=== PATIENT | female | born 1950 | race Caucasian/White ===

== ENCOUNTER 2016-08-16 09:06 | Emergency (ER) | payer MEDICARE, MEDICAID ==
[2016-08-16] MEDS ORDERED: NS 0.9% 1000 ML* 2,000 ML IV ONE (10:37)
[2016-08-16] MEDS ORDERED: Meclizine TAB* 12.5 MG PO ONE (10:37)
[2016-08-16 10:47] LABS: Hematocrit 38 % (35-47); Hemoglobin 12.6 g/dl (12.0-16.0); Mean Corpuscular HGB Conc 33 g/dl (31-36); Mean Corpuscular Hemoglobin 29 pg (27-31); Mean Corpuscular Volume 85 fL (80-97); Mean Platelet Volume 7 um3 (7.4-10.4); Red Blood Count 4.42 10^6/ul (4.0-5.4); Red Cell Distribution Width 14 % (10.5-15); White Blood Count 8.7 10^3/ul (3.5-10.8)
[2016-08-16 11:02] LABS: BUN/Creatinine Ratio 30.1 (8-20); Calcium 9.6 mg/dL (8.6-10.3); EGFR African American 102.9 (>60); Globulin 3.3 g/dL (2-4); Magnesium 2.1 mg/dL (1.9-2.7); Potassium 4.3 mmol/L (3.5-5.0); Total Bilirubin 0.9 mg/dL (0.2-1.0); Total Protein 7.3 g/dL (6.4-8.9)
[2016-08-16 11:40] LABS: TSH (Thyroid Stimulating Horm) 1.62 mcIU/mL (0.34-5.60)
--- NOTE | 2016-08-16 13:51 | ED ---
Yodit Mcdowell Matthew, scribed for Himanshu Matson MD on 08/16/16 at 1034 . Dizziness - HPI Summary HPI Summary: A 66 y/o female presents to the ED with dizziness since 07:00 this morning. The patient describes her dizziness as her head spinning. Associated symptoms include nausea, unsteady gait, decreased appetite, and bilaterally LE weakness. She denies vomiting, sore throat, tinnitus, cough, chest pain, SOB, rashes, urinary symptoms, and recent illness. Her dizziness alleviated when laying down. Her dizziness is unaffected when sitting up. The patient had a small meal this morning. She has decreased hearing in the right ear. She has a Hx of dizziness and states that her symptoms are similar to her previous episodes. PMHx includes CVA and HTN. - History Of Current Complaint Chief Complaint: EDDizziness Stated Complaint: GENERAL ILLNESS Hx Obtained From: Patient Onset/Duration: Still Present Timing: Constant Severity Initially: Moderate Severity Currently: Mild Character: Head Spinning, Dizzy Aggravating Factor(s): Nothing Alleviating Factor(s): Lying Down Associated Signs And Symptoms: Positive: Nausea, Unsteady Gait, Decreased Oral Intake, Other: - Bilateral LE weakness; headache - right sided temporal. Negative: Vomiting, Tinnitus, Chest Pain, SOB - Allergies/Home Medications Allergies/Adverse Reactions: Allergies Allergy/AdvReac Type Severity Reaction Status Date / Time Bacitracin [From Neosporin] Allergy Unknown Verified 04/19/16 05:44 Reaction Details Neomycin [From Neosporin] Allergy Unknown Verified 04/19/16 05:44 Reaction Details Penicillins Allergy Unknown Verified 04/19/16 05:44 Reaction Details Polymyxin B [From Neosporin] Allergy Unknown Verified 04/19/16 05:44 Reaction Details Sulfa Antibiotics Allergy Unknown Verified 04/19/16 05:44 Reaction Details Sulfamethoxazole Allergy Unknown Verified 04/19/16 05:44 w/Trimethoprim Reaction [From Bactrim] Details PMH/Surg Hx/FS Hx/Imm Hx Endocrine/Hematology History: Denies: Hx Diabetes Cardiovascular History: Reports: Hx Angina, Hx Hypercholesterolemia, Hx Hypertension - not on medication, Other Cardiovascular Problems/Disorders - NSVT , HYPERCHOLESTEROLEMIA Denies: Hx Congestive Heart Failure, Hx Pacemaker/ICD Respiratory History: Reports: Hx Asthma, Hx Chronic Bronchitis, Hx Chronic Obstructive Pulmonary Disease (COPD), Other Respiratory Problems/Disorders - hx bronchitis GI History: Reports: Hx Gall Bladder Disease - gallbladder surgery, gallstones, Other GI Disorders - gallbladder surgery, gallstones History: Denies: Hx Dialysis, Hx Renal Disease Musculoskeletal History: Reports: Hx Arthritis, Other Musculoskeletal History - arthritis Sensory History: Reports: Hx Vision Problem, Hx Hearing Aid - rt ear, Hx Hearing Problem Opthamlomology History: Reports: Hx Vision Problem Neurological History: Reports: Hx Headaches, Hx Seizures Psychiatric History: Reports: Hx Depression, Other Psychiatric Issues/Disorders - Borderline personality disorder Denies: Hx Panic Disorder - Cancer History Hx Chemotherapy: No Hx Radiation Therapy: No - Surgical History Surgery Procedure, Year, and Place: cholecystectomy. tubal. tonsillectomy - Immunization History Date of Tetanus Vaccine: UP TO DATE, YEAR UNKNOWB Date of Influenza Vaccine: FALL 2014 Infectious Disease History: No Infectious Disease History: Denies: Traveled Outside the [place] in Last 30 Days - Family History Known Family History: Positive: Cardiac Disease - CAD in grandfather - Social History Alcohol Use: None Substance Use Type: Reports: None Hx Tobacco Use: Yes Smoking Status (MU): Never Smoked Tobacco Type: Cigarettes Amount Used/How Often: dates are estimates Have You Smoked in the Last Year: No Review of Systems Constitutional: Other - decreased appetite Eyes: Negative ENT: Negative Negative: Sore Throat Cardiovascular: Negative Negative: Chest Pain Respiratory: Negative Negative: Shortness Of Breath, Cough Positive: Nausea. Negative: Abdominal Pain, Vomiting Genitourinary: Negative Musculoskeletal: Negative Negative: Edema - pedal Skin: Negative Negative: Rash Neurological: Other - Dizziness Positive: Headache - right sided temporal , Weakness - LE bilterally Psychological: Normal All Other Systems Reviewed And Are Negative: Yes Physical Exam - Summary Physical Exam Summary: The patient is well-nourished in no acute distress and in no acute pain. The patient's symptoms did not worsen when sitting her up./ The skin is warm and dry and skin color reflects adequate perfusion. HEENT: The head is normocephalic and atraumatic. The pupils are equal and reactive. She does not have nystagmus, PERRL, EMOI. The conjunctivae are clear and without drainage. Nares are patent and without drainage. Mouth reveals moist mucous membranes and the throat is without erythema and exudate. The external ears are intact. The ear canals are patent and without drainage. The tympanic membranes are intact. Neck is supple with full range of motion and non-tender. There are no carotid bruits. There is no neck vein distension. Respiratory: Chest is non-tender. Lungs are clear to auscultation and breath sounds are symmetrical and equal. Cardiovascular: Hear is regular rate and rhythm. There is no murmur or rub auscultated. There is no peripheral edema and pulses are symmetrical and equal. Abdomen: The abdomen is soft, obese, and non-tender. There are normal bowel sounds heard in all four quadrants and there is no organomegaly palpated. Musculoskeletal: There is no back pain noted. Extremities are non-tender with full range of motion. There is good capillary refill. There is no peripheral edema or calf tenderness elicited. Neurological: Patient is alert and oriented to person, place and time. The patient has symmetrical motor strength in all four extremities. Cranial nerves are grossly intact. Deep tendon reflexes are symmetrical and equal in all four extremities. Psychiatric: The patient has an appropriate affect and does not exhibit any anxiety or depression. Triage Information Reviewed: Yes Vital Signs On Initial Exam: Initial Vitals Temp Pulse Resp BP Pulse Ox 98.7 F 60 25 139/73 94 08/16/16 09:16 08/16/16 09:16 08/16/16 09:16 08/16/16 09:16 08/16/16 09:16 Vital Signs Reviewed: Yes - [place] Coma Scale Coma Scale Total: 15 Diagnostics - Vital Signs Vital Signs Temp Pulse Resp BP Pulse Ox 08/16/16 09:16 98.7 F 60 25 139/73 94 - Laboratory Lab Results: Lab Results 08/16/16 08/16/16 08/16/16 Range/Units 10:39 10:39 10:39 WBC 8.7 (3.5-10.8) 10^3/ul RBC 4.42 (4.0-5.4) 10^6/ul Hgb 12.6 (12.0-16.0) g/dl Hct 38 (35-47) % MCV 85 (80-97) fL MCH 29 (27-31) pg MCHC 33 (31-36) g/dl RDW 14 (10.5-15) % Plt Count 281 (150-450) 10^3/ul MPV 7 L (7.4-10.4) um3 Neut % (Auto) 75.5 (38-83) % Lymph % (Auto) 15.2 L (25-47) % Burnett % (Auto) 8.4 (1-9) % Eos % (Auto) 0.5 (0-6) % Baso % (Auto) 0.4 (0-2) % Absolute Neuts (auto) 6.6 (1.5-7.7) 10^3/ul Absolute Lymphs (auto) 1.3 (1.0-4.8) 10^3/ul Absolute Monos (auto) 0.7 (0-0.8) 10^3/ul Absolute Eos (auto) 0 (0-0.6) 10^3/ul Absolute Basos (auto) 0 (0-0.2) 10^3/ul Absolute Nucleated RBC 0 10^3/ul Nucleated RBC % 0 Sodium 135 (133-145) mmol/L Potassium 4.3 (3.5-5.0) mmol/L Chloride 101 (101-111) mmol/L Carbon Dioxide 28 (22-32) mmol/L Anion Gap 6 (2-11) mmol/L BUN 22 (6-24) mg/dL Creatinine 0.73 (0.51-0.95) mg/dL Est GFR ( Amer) 102.9 (>60) Est GFR (Non-Af Amer) 80.0 (>60) BUN/Creatinine Ratio 30.1 H (8-20) Glucose 105 H (70-100) mg/dL Lactic Acid 1.2 (0.5-2.0) mmol/L Calcium 9.6 (8.6-10.3) mg/dL Magnesium 2.1 (1.9-2.7) mg/dL Total Bilirubin 0.90 (0.2-1.0) mg/dL AST 16 (13-39) U/L ALT 13 (7-52) U/L Alkaline Phosphatase 52 (34-104) U/L Troponin I 0.00 (<0.04) ng/mL Total Protein 7.3 (6.4-8.9) g/dL Albumin 4.0 (3.2-5.2) g/dL Globulin 3.3 (2-4) g/dL Albumin/Globulin Ratio 1.2 (1-3) TSH 1.62 (0.34-5.60) mcIU/mL Result Diagrams: 08/16/16 10:39 08/16/16 10:39 Lab Statement: Any lab studies that have been ordered have been reviewed, and results considered in the medical decision making process. - EKG 10:41 Cardiac Rate: Bradycardia - 56 bpm EKG Rhythm: Sinus Bradycardia ST Segment: Non-Specific - Inferior EKG Interpretation: Poor R Wave Progression; Left [place] EKG Comparison: No Significant Change - 04/19/16 Re-Evaluation - Re-Evaluation First Eval Re-Evaluation Time: 12:42 Change: Improved Comment: The patient's symptoms have improved and she states that she's doing better. Reviewed the lab results with the patient. She agrees to the treatment plan. Dizzy Course/Dx - Course Assessment/Plan: A 66 y/o female presents to the ED with dizziness since 07:00 this morning. Lab results were reviewed. EKG shows sinus bradycardia at 56 bpm with non-specific ST changes inferiorly, Poor R Wave Progression, and Left [place]. Upon re-evaluation, the patient's symptoms have improved. The patient will be discharged home and follow-up with her PCP. - Diagnoses Differential Diagnosis/HQI/PQRI: Hypovolemia, Labyrinthitis, Metabolic Abnormality Provider Diagnoses: Vertigo, Dehydration Discharge - Discharge Plan Condition: Stable Disposition: HOME Prescriptions: Meclizine TAB* [Antivert 12.5 TAB*] 25 mg PO QID #30 tab Patient Education Materials: Vertigo (ED), Dehydration (ED), Meclizine (By mouth) Referrals: Adrián Arambula MD [Primary Care Provider] - 3 Days Additional Instructions: Please follow-up with your primary care physician. The documentation as recorded by the Yodit ireland Matthew accurately reflects the service I personally performed and the decisions made by me, Himanshu Matson MD.
[2016-08-16 13:52] VITALS: BP 112/85
== END 2016-08-16 13:43 | disposition home or self-care (01) ==
LOC: ED 09:06
DX: R42 Dizziness and giddiness (principal); E86.0 Dehydration
CPT/HCPCS: 36415; 80053; 83605; 83735; 84443; 84484; 85025; 93005; 99282; A9270-GY

== ENCOUNTER 2017-02-24 17:03 | Emergency (ER) | payer MEDICARE, MEDICAID ==
[2017-02-24] MEDS ORDERED: Meclizine TAB* 12.5 MG PO ONE (19:36)
--- NOTE | 2017-02-24 19:56 | RAD ---
HISTORY: Dizziness COMPARISONS: April 19, 2016 VIEWS:1: Single frontal portable view of the chest at 7:43 PM FINDINGS: LINES AND TUBES: None. CARDIOMEDIASTINAL SILHOUETTE: The cardiomediastinal silhouette is normal for portable technique. PLEURA: The costophrenic angles are sharp. No pleural abnormalities are noted. LUNG PARENCHYMA: The lungs are clear. ABDOMEN: The upper abdomen is clear. There is no subphrenic gas. BONES AND SOFT TISSUES: No bone or soft tissue abnormalities are noted. IMPRESSION: NO ACTIVE CARDIOPULMONARY DISEASE.
--- NOTE | 2017-02-24 20:01 | RAD ---
HISTORY: Dizziness COMPARISONS: March 06, 2016 TECHNIQUE: Multiple contiguous axial CT scans were obtained of the head without intravenous contrast. FINDINGS: HEMORRHAGE/INFARCT: There is no hemorrhage or acute infarct. MASSES/SHIFT: There is no mass or shift. EXTRA-AXIAL SPACES: There are no extra-axial fluid collections. SULCI AND VENTRICLES: The sulci and ventricles are normal in size and position for the patient's stated age. CEREBRUM: There are no focal parenchymal abnormalities. BRAINSTEM: There are no focal parenchymal abnormalities. CEREBELLUM: There are no focal parenchymal abnormalities. VESSELS: The vessels are grossly normal. PARANASAL SINUSES: The paranasal sinuses are clear. ORBITS: The orbits are unremarkable. BONES AND SOFT TISSUE: No bone or soft tissue abnormalities are noted. OTHER: None IMPRESSION: NO ACUTE INTRACRANIAL PATHOLOGY.
[2017-02-24 20:21] LABS: Hematocrit 36 % (35-47); Hemoglobin 11.8 g/dl (12.0-16.0); Mean Corpuscular HGB Conc 32 g/dl (31-36); Mean Corpuscular Hemoglobin 28 pg (27-31); Mean Corpuscular Volume 86 fL (80-97); Mean Platelet Volume 8 um3 (7.4-10.4); Red Blood Count 4.22 10^6/ul (4.0-5.4); Red Cell Distribution Width 14 % (10.5-15); White Blood Count 10.4 10^3/ul (3.5-10.8)
[2017-02-24 20:36] LABS: ALT 19 U/L (7-52); Alkaline Phosphatase 45 U/L (34-104); BUN/Creatinine Ratio 23.4 (8-20); Blood Urea Nitrogen 18 mg/dL (6-24); CO2 Carbon Dioxide 27 mmol/L (22-32); Calcium 9.2 mg/dL (8.6-10.3); Chloride 103 mmol/L (101-111); EGFR African American 96.5 (>60); Globulin 3.1 g/dL (2-4); Glucose 124 mg/dL (70-100); Sodium 134 mmol/L (133-145); Total Protein 7.1 g/dL (6.4-8.9)
[2017-02-24 20:38] LABS: Urine Bacteria Absent (Absent); Urine Bilirubin Negative (Negative); Urine Glucose Negative (Negative); Urine Nitrite Negative (Negative)
[2017-02-24 20:43] LABS: Anion Gap 4 mmol/L (2-11)
[2017-02-24 21:46] VITALS: BP 166/79
--- NOTE | 2017-02-24 21:51 | ED ---
Vickie Mcdowell Rebecca, scribed for Elaine Callahanuel on 02/24/17 at 1935 . Dizziness - HPI Summary HPI Summary: Pt is a 67 y/o F BIBA who presents to ED c/o dizziness. Sx began at 1630 and lasted between 45 minutes and 1 hour. Upon evaluation, sx are resolved. Sx aggravated by turning her head, alleviated by spontaneous resolution. Additionally c/o mild CP and R ear pain. Denies SOB and abd pain. Reports recent illness for the past week. - History Of Current Complaint Chief Complaint: EDDizziness Stated Complaint: VERTIGO Time Seen by Provider: 02/24/17 19:23 Hx Obtained From: Patient Onset/Duration: Resolved Timing: Intermittent Episode Lasting - 45 minutes to1 hour Aggravating Factor(s): Change In Head Position Alleviating Factor(s): Other - Spontaneous resolution Associated Signs And Symptoms: Positive: Chest Pain - mild. Negative: SOB - Allergies/Home Medications Allergies/Adverse Reactions: Allergies Allergy/AdvReac Type Severity Reaction Status Date / Time Bacitracin [From Neosporin] Allergy Unknown Verified 02/24/17 17:31 Reaction Details Neomycin [From Neosporin] Allergy Unknown Verified 02/24/17 17:31 Reaction Details Penicillins Allergy Unknown Verified 02/24/17 17:31 Reaction Details Polymyxin B [From Neosporin] Allergy Unknown Verified 02/24/17 17:31 Reaction Details Sulfa Antibiotics Allergy Unknown Verified 02/24/17 17:31 Reaction Details Sulfamethoxazole Allergy Unknown Verified 02/24/17 17:31 w/Trimethoprim Reaction [From Bactrim] Details PMH/Surg Hx/FS Hx/Imm Hx Endocrine/Hematology History: Denies: Hx Diabetes Cardiovascular History: Reports: Hx Angina, Hx Hypercholesterolemia, Hx Hypertension - not on medication, Other Cardiovascular Problems/Disorders - NSVT , HYPERCHOLESTEROLEMIA Denies: Hx Congestive Heart Failure, Hx Pacemaker/ICD Respiratory History: Reports: Hx Asthma, Hx Chronic Bronchitis, Hx Chronic Obstructive Pulmonary Disease (COPD), Other Respiratory Problems/Disorders - hx bronchitis GI History: Reports: Hx Gall Bladder Disease - gallbladder surgery, gallstones, Other GI Disorders - gallbladder surgery, gallstones History: Denies: Hx Dialysis, Hx Renal Disease Musculoskeletal History: Reports: Hx Arthritis, Other Musculoskeletal History - arthritis Sensory History: Reports: Hx Vision Problem, Hx Hearing Aid - rt ear, Hx Hearing Problem Opthamlomology History: Reports: Hx Vision Problem Neurological History: Reports: Hx Headaches, Hx Seizures Psychiatric History: Reports: Hx Depression, Other Psychiatric Issues/Disorders - Borderline personality disorder Denies: Hx Panic Disorder - Cancer History Hx Chemotherapy: No Hx Radiation Therapy: No - Surgical History Surgery Procedure, Year, and Place: cholecystectomy. tubal. tonsillectomy - Immunization History Date of Tetanus Vaccine: UP TO DATE, YEAR UNKNOWB Date of Influenza Vaccine: FALL 2014 Infectious Disease History: No Infectious Disease History: Denies: Traveled Outside the [place] in Last 30 Days - Family History Known Family History: Positive: Cardiac Disease - CAD in grandfather - Social History Alcohol Use: None Substance Use Type: Reports: None Hx Tobacco Use: Yes Smoking Status (MU): Never Smoked Tobacco Type: Cigarettes Amount Used/How Often: dates are estimates Have You Smoked in the Last Year: No Review of Systems Positive: Ear Ache - R ear pain Positive: Chest Pain - mild Negative: Shortness Of Breath Negative: Abdominal Pain Neurological: Other - Dizziness All Other Systems Reviewed And Are Negative: Yes Physical Exam - Summary Physical Exam Summary: Appearance: Well appearing, no pain distress Skin: warm, dry, reflects adequate perfusion Head/face: normal Eyes: EOMI, WENDI ENT: normal Neck: supple, nontender Respiratory: CTA, breath sounds present Cardiovascular: RRR, pulses symmetrical Abdomen: nontender, soft Bowel: present Musculoskeletal: normal, strength/ROM intact Neuro: normal, sensory motor intact, A&Ox3 Triage Information Reviewed: Yes Vital Signs On Initial Exam: Initial Vitals Temp Pulse BP 98.2 F 82 179/87 02/24/17 17:17 02/24/17 17:17 02/24/17 17:17 Vital Signs Reviewed: Yes - [place] Coma Scale Best Eye Response: 4 - Spontaneous Best Motor Response: 6 - Obeys Commands Best Verbal Response: 5 - Oriented Coma Scale Total: 15 Diagnostics - Vital Signs Vital Signs Temp Pulse Resp BP Pulse Ox 02/24/17 18:30 67 17 170/70 94 02/24/17 18:00 69 19 167/77 94 02/24/17 17:30 81 174/102 95 02/24/17 17:22 98.2 F 82 18 175/87 95 02/24/17 17:19 79 94 08/27/17 17:17 98.2 F 82 179/87 - Laboratory Result Diagrams: 02/24/17 20:10 02/24/17 21:03 Lab Statement: Any lab studies that have been ordered have been reviewed, and results considered in the medical decision making process. - Radiology CXR Xray Interpretation: No Acute Changes - NO ACTIVE CARDIOPULMONARY DISEASE. ED physician reviewed this radiology report and agrees. Radiology Interpretation Completed By: Radiologist - CT Brain CT CT Interpretation: No Acute Changes - NO ACUTE INTRACRANIAL PATHOLOGY. ED physician reviewed this radiology report and agrees. CT Interpretation Completed By: Radiologist - EKG 2051 Cardiac Rate: NL - 68 bpm EKG Rhythm: Sinus Rhythm EKG Interpretation: No acute changes Re-Evaluation - Re-Evaluation First Eval Re-Evaluation Time: 21:38 Change: Improved Comment: Pt sx have improved after antivert. Dizzy Course/Dx - Course Assessment/Plan: Pt is a 67 y/o F BIBA who presents to ED c/o dizziness. Sx began at 1630 and lasted between 45 minutes and 1 hour. Upon evaluation, sx are resolved. Sx aggravated by turning her head, alleviated by spontaneous resolution. Additionally c/o mild CP and R ear pain. Denies SOB and abd pain. Reports recent illness for the past week. EKG reveals sinus rhythm with no acute changes. CXR and Brain CT reveal no acute findings. Troponin of 0.00. In the ED course, the pt was administered Meclizine which improved sx. She will be D/C to home with Dx of vertigo, an Rx for Meclizine and a follow up with her PCP. She understands and agrees. Elevated BP noted and advised to f/u with PCP. - Diagnoses Provider Diagnoses: Vertigo Discharge - Discharge Plan Condition: Stable Disposition: HOME Prescriptions: Meclizine HCl [Meclizine 25] 25 mg PO TID #20 tab Patient Education Materials: Vertigo (ED) Referrals: Adrián Arambula MD [Primary Care Provider] - 3 Days The documentation as recorded by the Vickie ireland Rebecca accurately reflects the service I personally performed and the decisions made by , Dany Callahan.
== END 2017-02-24 21:55 | disposition home or self-care (01) ==
LOC: ED 17:03
DX: R42 Dizziness and giddiness (principal); H92.01 Otalgia, right ear; R07.9 Chest pain, unspecified
CPT/HCPCS: 36415; 70450; 71010; 80053; 81003; 81015; 84484; 85025; 85610; 85730; 87077; 87086; 93005; 99284; A9270-GY

== ENCOUNTER 2017-10-21 17:51 | Emergency (ER) | payer MEDICARE, MEDICAID ==
[2017-10-21] MEDS ORDERED: Albuterol/Ipratropium NEB.SOL* Albuterol 2.5 MG/Ipratropium 0.5 MG 3 ML INH ONE (18:37)
--- NOTE | 2017-10-21 18:46 | ED ---
Respiratory - HPI Summary HPI Summary: 67-year-old female presents with shortness for the past couple hours. She states she has been having chest congestion. She admits to occasionally chest tightness. she denies any current chest pain. She denies a sore throat. She admits to sinus congestion. She denies abdominal pain nausea or vomiting. She has history of COPD. She has not been using her inhaler much. She denies any increase pain or swelling in her calf muscles. She denies any history of [place] or PE. She denies any recent travel or hormone therapy. She denies any palpations. - History of Current Complaint Chief Complaint: EDShortnessOfBreath Stated Complaint: DIFF. BREATHING Time Seen by Provider: 10/21/17 18:13 Pain Intensity: 0 - Allergy/Home Medications Allergies/Adverse Reactions: Allergies Allergy/AdvReac Type Severity Reaction Status Date / Time bacitracin Allergy Unknown Verified 08/15/17 11:20 [From Neosporin Reaction ([id number])] Details clindamycin Allergy Unknown Verified 08/15/17 11:20 Reaction Details Iodinated Contrast- Oral and Allergy Unknown Verified 08/15/17 11:20 IV Dye Reaction Details neomycin Allergy Unknown Verified 08/15/17 11:20 [From Neosporin Reaction ([id number])] Details Penicillins Allergy Unknown Verified 08/15/17 11:20 Reaction Details polymyxin B Allergy Unknown Verified 08/15/17 11:20 [From Neosporin Reaction ([id number])] Details Sulfa (Sulfonamide Allergy Unknown Verified 08/15/17 11:20 Antibiotics) Reaction Details PMH/Surg Hx/FS Hx/Imm Hx Endocrine/Hematology History: Denies: Hx Diabetes Cardiovascular History: Reports: Hx Angina, Hx Hypercholesterolemia, Hx Hypertension - not on medication, Other Cardiovascular Problems/Disorders - NSVT , HYPERCHOLESTEROLEMIA Denies: Hx Congestive Heart Failure, Hx Pacemaker/ICD Respiratory History: Reports: Hx Asthma, Hx Chronic Bronchitis, Hx Chronic Obstructive Pulmonary Disease (COPD), Other Respiratory Problems/Disorders - hx bronchitis GI History: Reports: Hx Gall Bladder Disease - gallbladder surgery, gallstones, Other GI Disorders - gallbladder surgery, gallstones History: Denies: Hx Dialysis, Hx Renal Disease Musculoskeletal History: Reports: Hx Arthritis, Other Musculoskeletal History - arthritis Sensory History: Reports: Hx Vision Problem, Hx Hearing Aid - rt ear, Hx Hearing Problem Opthamlomology History: Reports: Hx Vision Problem Neurological History: Reports: Hx Headaches, Hx Seizures Psychiatric History: Reports: Hx Depression, Other Psychiatric Issues/Disorders - Borderline personality disorder Denies: Hx Panic Disorder - Cancer History Hx Chemotherapy: No Hx Radiation Therapy: No - Surgical History Surgery Procedure, Year, and Place: cholecystectomy. tubal. tonsillectomy - Immunization History Date of Tetanus Vaccine: UP TO DATE, YEAR UNKNOWB Date of Influenza Vaccine: FALL 2014 Infectious Disease History: No Infectious Disease History: Denies: Traveled Outside the [place] in Last 30 Days - Family History Known Family History: Positive: Cardiac Disease - CAD in grandfather - Social History Alcohol Use: None Substance Use Type: Reports: None Hx Tobacco Use: Yes Smoking Status (MU): Former Smoker Type: Cigarettes Amount Used/How Often: dates are estimates Have You Smoked in the Last Year: No Review of Systems Negative: Fever Positive: Chest Pain Positive: Shortness Of Breath, Cough Negative: Abdominal Pain All Other Systems Reviewed And Are Negative: Yes Physical Exam Triage Information Reviewed: Yes Vital Signs On Initial Exam: Initial Vitals Temp Pulse Resp BP Pulse Ox 99.4 F 70 16 167/84 95 10/21/17 18:07 10/21/17 18:07 10/21/17 18:07 10/21/17 18:07 10/21/17 18:07 Vital Signs Reviewed: Yes Appearance: Positive: Well-Appearing Skin: Positive: Warm, Dry Head/Face: Positive: Normal Head/Face Inspection Eyes: Positive: Normal, EOMI, WENDI, Conjunctiva Clear ENT: Positive: Normal ENT inspection, Pharynx normal, TMs normal. Negative: Sinus tenderness Neck: Positive: Supple, Nontender, No Lymphadenopathy Respiratory/Lung Sounds: Positive: Clear to Auscultation, Decreased Breath Sounds Cardiovascular: Positive: Normal, RRR Abdomen Description: Positive: Nontender, Soft Bowel Sounds: Positive: Present Musculoskeletal: Positive: Normal Neurological: Positive: Normal Psychiatric: Positive: Normal Diagnostics - Vital Signs Vital Signs Temp Pulse Resp BP Pulse Ox 10/21/17 18:39 63 156/91 96 10/21/17 18:10 67 95 10/21/17 18:07 99.4 F 70 16 167/84 95 - Laboratory Lab Results: Lab Results 10/21/17 Range/Units 18:19 POC Glucose (mg/dL) 105 H (70-100) mg/dL Result Diagrams: 10/21/17 19:29 10/21/17 19:29 Lab Statement: Any lab studies that have been ordered have been reviewed, and results considered in the medical decision making process. - Radiology chest Xray Interpretation: Positive (See Comments) - IMPRESSION: No active cardiopulmonary disease is noted. Overall no changes noted since February 24, 2017. Radiology Interpretation Completed By: Radiologist - EKG No standard instances Cardiac Rate: NL EKG Rhythm: Sinus Rhythm EKG Interpretation: sinus rhythmn, improved from previous Re-Evaluation - Re-Evaluation First Eval Re-Evaluation Time: 20:00 Change: Improved Comment: feeling better after duoneb. Disposition - Course Course Of Treatment: 67-year-old female presents with shortness for the past couple hours. She states she has been having chest congestion. She admits to occasionally chest tightness. she denies any current chest pain. She denies a sore throat. She admits to sinus congestion. She denies abdominal pain nausea or vomiting. She has history of COPD. She has not been using her inhaler much. She denies any increase pain or swelling in her calf muscles. She denies any history of [place] or PE. She denies any recent travel or hormone therapy. She denies any palpations. on exam lungs decrease breath sounds present. chest wall tenderness right side of chest. EKG normal. chest xray normal. labs wnl. will treat as copd excerbation with inhaler and steriod. patient understand and agrees with plan. - Differential Dx - Cardiopulmonary Differential Diagnoses - Cardiopulmonary: Bronchitis, Exacerbation Of COPD, Lower Resp Infection - Diagnoses Provider Diagnoses: SOB (shortness of breath), COPD exacerbation Discharge - Sign-Out/Discharge Documenting (check all that apply): Discharge/Admit/Transfer - Discharge Plan Condition: Good Disposition: HOME Prescriptions: Meclizine TAB* [Antivert 12.5 TAB*] 25 mg PO TID #12 tab predniSONE TAB* [Deltasone TAB*] 50 mg PO DAILY #4 tab Patient Education Materials: COPD (Chronic Obstructive Pulmonary Disease) (ED) Referrals: Adrián Arambula MD [Primary Care Provider] - Additional Instructions: Use inhaler up to two puffs every 4 hours for cough and wheezing Take steroid once a day for 4 more days starting tomorrow Take Tylenol for pain every 6 hours Follow up with primary within 5 days Return to ED if develop any new or worsening symptoms - Billing Disposition and Condition Condition: GOOD Disposition: HOME
--- NOTE | 2017-10-21 19:21 | RAD ---
Indication: Shortness of breath. 2 views of the chest including dual energy PA views demonstrates no mediastinal shift. Heart is of normal size and configuration. Lung ervin are clear. IMPRESSION: No active cardiopulmonary disease is noted. Overall no changes noted since February 24, 2017.
[2017-10-21 19:39] LABS: ABS Basophils 0.1 10^3/ul (0-0.2); ABS Eosinophils 0.1 10^3/ul (0-0.6); ABS Lymphocytes 2.1 10^3/ul (1.0-4.8); ABS Monocytes 0.8 10^3/ul (0-0.8); ABS Neutrophils 6.9 10^3/ul (1.5-7.7); ABS Nucleated RBC 0 10^3/ul; Eosinophil % 0.9 % (0-6); Hematocrit 38 % (35-47); Hemoglobin 12.7 g/dl (12.0-16.0); Lymphocyte % 20.6 % (25-47); Mean Corpuscular HGB Conc 34 g/dl (31-36); Mean Corpuscular Hemoglobin 29 pg (27-31); Mean Corpuscular Volume 86 fL (80-97); Mean Platelet Volume 7.3 um3 (7.4-10.4); Nucleated Red Blood Cells % 0.1; Platelet Count 341 10^3/ul (150-450); Red Cell Distribution Width 15 % (10.5-15); White Blood Count 9.9 10^3/ul (3.5-10.8)
[2017-10-21 19:59] LABS: EGFR Non-African American 61.9 (>60)
[2017-10-21] MEDS ORDERED: predniSONE TAB* 20 MG PO ONE (20:23)
[2017-10-21] MEDS ORDERED: A lbuterol Hfa (PREPAK) 1 MDI - ED TAKE HOME DISPENSING ONLY INHH ONE (20:30)
[2017-10-21 21:28] VITALS: BP 139/89
== END 2017-10-21 21:27 | disposition home or self-care (01) ==
LOC: ED 17:51
DX: R06.02 Shortness of breath (principal); J44.1 Chronic obstructive pulmonary disease with (acute) exacerbation; I20.9 Angina pectoris, unspecified; I10 Essential (primary) hypertension; E78.00 Pure hypercholesterolemia, unspecified; F32.9 Major depressive disorder, single episode, unspecified; F60.3 Borderline personality disorder; Z88.0 Allergy status to penicillin; Z88.2 Allergy status to sulfonamides; Z88.1 Allergy status to other antibiotic agents; Z88.3 Allergy status to other anti-infective agents; Z91.041 Radiographic dye allergy status; Z87.891 Personal history of nicotine dependence
CPT/HCPCS: 36415; 71046; 80053; 83605; 83880; 84484; 85025; 86141; 93005; 99283; A9270-GY; J7512

== ENCOUNTER 2018-09-12 12:11 | Emergency (ER) | payer MEDICARE, MEDICAID ==
[2018-09-12 12:31] VITALS: BP 147/50
--- NOTE | 2018-09-12 12:37 | ED ---
Psychiatric Complaint - HPI Summary HPI Summary: The patient is a 68 y/o F presenting to [facility] with a chief complaint of SI yesterday that has since resolved, but she is continuing to feel depressed and anxious since she has been crying this morning. She states that she was on the phone with her sister yesterday when she became upset. She then notes that she "lost her mind" and had a knife in her hand but didn't act upon the SI. She has hx of SI with thoughts of jumping off of bridges, but she hasn't made attempts before. She lives by herself. She additionally c/o of CP. No SI at this time. - History Of Current Complaint Chief Complaint: EDMentalHealth Hx Obtained From: Patient Onset/Duration: Sudden Onset, Lasting Hours, Resolved Timing: Hours Severity Initially: Severe Severity Currently: Moderate Character: Depressed, Anxious Aggravating Factor(s): Other - argument with sister Alleviating Factor(s): Nothing Has Suicidal: Reports: Thoughts, With A Plan - cutting self with knife, jumping off bridge. Denies: Has Prior Attempt(s) - Allergies/Home Medications Allergies/Adverse Reactions: Allergies Allergy/AdvReac Type Severity Reaction Status Date / Time bacitracin Allergy Unknown Verified 09/12/18 12:26 [From Neosporin Reaction ([id number])] Details clindamycin Allergy Unknown Verified 09/12/18 12:26 Reaction Details Iodinated Contrast- Oral and Allergy Unknown Verified 09/12/18 12:26 IV Dye Reaction Details neomycin Allergy Unknown Verified 09/12/18 12:26 [From Neosporin Reaction ([id number])] Details Penicillins Allergy Unknown Verified 09/12/18 12:26 Reaction Details polymyxin B Allergy Unknown Verified 09/12/18 12:26 [From Neosporin Reaction ([id number])] Details Sulfa (Sulfonamide Allergy Unknown Verified 09/12/18 12:26 Antibiotics) Reaction Details Home Medications: Home Medications Acetaminophen TAB* [Tylenol TAB*] 325 - 650 mg PO Q6H PRN 09/12/18 [History Confirmed 09/12/18] Albuterol inh POWDER (NF) [Proair Respiclick] 1 - 2 puff INH QID PRN 09/12/18 [ History Confirmed 09/12/18] Baclofen TAB* [Lioresal TAB*] 10 mg PO TID PRN 09/12/18 [History Confirmed 09/12] Bismuth Subsalicylate [Pepto-Bismol Max Strength] 30 ml PO DAILY PRN 09/12/18 [ History Confirmed 09/12/18] Calcium Carbonate/Vitamin D3 [Calcium 500 + Vit D Caplet] 1 tab PO BID 09/12/18 [History Confirmed 09/12/18] Clotrimazole 1% CREAM* [Clotrimazole 1%*] 1 applic TOPICAL BID PRN 09/12/18 [ History Confirmed 09/12/18] Dextran 70/Hypromellose [Natural Balance Tears 70.01-0.3 %] 1 drop OPHTHALMIC BID 09/12/18 [History Confirmed 09/12/18] Diclofenac Sodium EC TAB* [Voltaren EC TAB*] 25 - 50 mg PO TID PRN 09/12/18 [ History Confirmed 09/12/18] Diphenhydra/Phenyleph/Acetamin [Delsym Cough-Cold Nighttime Lq] 10 ml PO Q6HR PRN 09/12/18 [History Confirmed 09/12/18] Eucalyptus/Menthol [Cornejo Cough Drops] 1 greg PO Q2HR PRN 09/12/18 [History Confirmed 09/12/18] Gabapentin CAP(*) [Neurontin 300 CAP(*)] 300 mg PO BID PRN 09/12/18 [History Confirmed 09/12/18] Glucosamine CAP (NF) 3 cap PO DAILY 09/12/18 [History Confirmed 09/12/18] LoraTADine TAB(NF) [Claritin 10 MG TAB(NF)] 10 mg PO DAILY PRN 09/12/18 [ History Confirmed 09/12/18] Lovastatin (NF) [Mevacor (NF)] 40 mg PO DAILY 09/12/18 [History Confirmed ] Magnesium CITRATE* [Citrate of Magnesia*] 4 oz PO ONCE PRN 09/12/18 [History Confirmed 09/12/18] Meclizine TAB* [Antivert 12.5 TAB*] 25 mg PO TID PRN 09/12/18 [History Confirmed 09/12/18] Metoprolol Succinate XL TAB* [Toprol XL TAB*] 12.5 mg PO DAILY 09/12/18 [ History Confirmed 09/12/18] Multivitamins/Minerals TAB* [Theragran/minerals TAB*] 1 tab PO DAILY 09/12/18 [ History Confirmed 09/12/18] Naproxen TAB* [Naprosyn 250 mg TAB*] 500 mg PO BID WITH MEALS PRN 09/12/18 [ History Confirmed 09/12/18] Olopatadine 0.1% OPHTH (NF) [Patanol 0.1% OPHTH (NF)] 1 drop BOTH EYES BID PRN 09/12/18 [History Confirmed 09/12/18] Polyethylene Glycol 3350* [Miralax*] 17 gm PO DAILY PRN 09/12/18 [History Confirmed 09/12/18] guaiFENesin LIQ* [Robitussin*] 15 ml PO Q6HR PRN 09/12/18 [History Confirmed ] PMH/Surg Hx/FS Hx/Imm Hx Endocrine/Hematology History: Denies: Hx Diabetes Cardiovascular History: Reports: Hx Angina, Hx Hypercholesterolemia, Hx Hypertension - not on medication, Other Cardiovascular Problems/Disorders - NSVT , HYPERCHOLESTEROLEMIA Denies: Hx Congestive Heart Failure, Hx Pacemaker/ICD Respiratory History: Reports: Hx Asthma, Hx Chronic Bronchitis, Hx Chronic Obstructive Pulmonary Disease (COPD), Other Respiratory Problems/Disorders - hx bronchitis GI History: Reports: Hx Gall Bladder Disease - gallbladder surgery, gallstones, Other GI Disorders - gallbladder surgery, gallstones History: Denies: Hx Dialysis, Hx Renal Disease Musculoskeletal History: Reports: Hx Arthritis, Other Musculoskeletal History - arthritis Sensory History: Reports: Hx Vision Problem, Hx Hearing Aid - rt ear, Hx Hearing Problem Opthamlomology History: Reports: Hx Vision Problem Neurological History: Reports: Hx Headaches, Hx Seizures Psychiatric History: Reports: Hx Depression, Other Psychiatric Issues/Disorders - Borderline personality disorder Denies: Hx Panic Disorder - Cancer History Hx Chemotherapy: No Hx Radiation Therapy: No - Surgical History Surgery Procedure, Year, and Place: cholecystectomy. tubal. tonsillectomy - Immunization History Date of Tetanus Vaccine: UP TO DATE, YEAR UNKNOWB Date of Influenza Vaccine: FALL 2014 - Family History Known Family History: Positive: Cardiac Disease - CAD in grandfather - Social History Alcohol Use: None Substance Use Type: Reports: None Hx Tobacco Use: Yes Smoking Status (MU): Former Smoker Type: Cigarettes Amount Used/How Often: dates are estimates Have You Smoked in the Last Year: No Review of Systems Positive: Chest Pain Positive: Anxious, Depressed, Other - SI yesterday that has resolved All Other Systems Reviewed And Are Negative: Yes Physical Exam - Summary Physical Exam Summary: VITAL SIGNS: Reviewed. GENERAL: Patient is a well-developed and nourished elderly female who is lying comfortable in the stretcher. Patient is not in any acute respiratory distress. HEAD AND FACE: No signs of trauma. No ecchymosis, hematomas or skull depressions. No sinus tenderness. EYES: PERRLA, EOMI x 2, No injected conjunctiva, no nystagmus. EARS: Hearing grossly intact. Ear canals and tympanic membranes are within normal limits. MOUTH: Oropharynx within normal limits. NECK: Supple, trachea is midline, no adenopathy, no JVD, no carotid bruit, no c- spine tenderness, neck with full ROM. CHEST: Symmetric, no tenderness at palpation LUNGS: Clear to auscultation bilaterally. No wheezing or crackles. CVS: Regular rate and rhythm, S1 and S2 present, no murmurs or gallops appreciated. ABDOMEN: Soft, non-tender. No signs of distention. No rebound no guarding, and no masses palpated. Bowel sounds are normal. EXTREMITIES: FROM in all major joints, no edema, no cyanosis or clubbing. NEURO: Alert and oriented x 3. No acute neurological deficits. Speech is normal and follows commands. SKIN: Dry and warm PSYCH: Depressed, quiet, and denies any suicidal thoughts or plan right now. No homicidal thoughts or plan. No signs of psychosis or pressure speech. No tangential speech. Triage Information Reviewed: Yes Vital Signs Reviewed: Yes Diagnostics - Laboratory Result Diagrams: 09/12/18 12:51 09/12/18 12:51 Lab Statement: Any lab studies that have been ordered have been reviewed, and results considered in the medical decision making process. - Radiology CXR Radiology Interpretation Completed By: Radiologist Summary of Radiographic Findings: No active cardiopulmonary disease. ED physician has reviewed this report. - EKG 12:38 Cardiac Rate: NL - 65 BPM EKG Rhythm: Sinus Rhythm EKG Comparison: No Significant Change - Similar to 10/21/2017. Summary of EKG Findings: No ST elevations. T wave inversions in leads III and aVF. Course/Dx - Course Assessment/Plan: Blood work w/o a significant abnormality. She is medically cleared. She is awaiting for a MHE. Patient is hemodynamically stable and A+O x 3. Dr. Cash (Psychiatry) assess patient and clear the patient and recommends to discharge the patient home with outpatient follow up. - Differential Dx/Clinical Impression Differential Diagnosis/HQI/PQRI: Positive: Anxiety, Depression, Suicidal Ideation Provider Diagnosis: Adjustment disorder with anxiety - Physician Notifications Discussed Care Of Patient With: Jeana Younger - mental health account executive sales representative Time Discussed With Above Provider: 15:30 Instructed by Provider To: Other - I spoke with Jeana, who reports that the patient can be discharged from Dr. Cash, psychiatry. Discharge - Sign-Out/Discharge Documenting (check all that apply): Patient Departure - Patient will be discharged home. Patient Received Moderate/Deep Sedation with Procedure: No - Discharge Plan Condition: Stable Disposition: HOME Referrals: Berta Castro PA [Primary Care Provider] - Additional Instructions: RETURN TO THE ED FOR ANY WORSENING OR NEW SYMPTOMS. - Billing Disposition and Condition Condition: STABLE Disposition: Home - Attestation Statements Document Initiated by Betito: Yes Documenting Scribe: Ade Ceballos Provider For Whom Betito is Documenting (Include Credential): Dr. Rivera Crockett MD Scribe Attestation: Ade Mcdowell scribed for Dr. Rivera Crockett MD on 09/12/18 at 1546. Scribe Documentation Reviewed: Yes Provider Attestation: The documentation as recorded by the Ade [place] accurately reflects the service I personally performed and the decisions made by me, Dr. Rivera Crockett MD Status of Scribe Document: Ready
[2018-09-12 13:11] LABS: ABS Basophils 0.1 10^3/ul (0-0.2); ABS Eosinophils 0.1 10^3/ul (0-0.6); ABS Lymphocytes 1.9 10^3/ul (1.0-4.8); ABS Monocytes 0.8 10^3/ul (0-0.8); ABS Neutrophils 6.8 10^3/ul (1.5-7.7); ABS Nucleated RBC 0 10^3/ul; Eosinophil % 0.5 %; Hematocrit 38 % (33-41); Hemoglobin 12.5 g/dL (12.0-16.0); Lymphocyte % 19.7 %; Mean Corpuscular HGB Conc 33 g/dL (31-36); Mean Corpuscular Hemoglobin 30 pg (27-31); Mean Corpuscular Volume 89 fL (80-97); Mean Platelet Volume 7.2 fL (7.4-10.4); Nucleated Red Blood Cells % 0; Platelet Count 377 10^3/uL (150-450); Red Blood Count 4.23 10^6 /uL (3.70-4.87); Red Cell Distribution Width 14 % (10.5-15); White Blood Count 9.6 10^3/uL (3.5-10.8)
--- OUTSIDE RECORDS SUMMARY | 2018-09-12 13:21 | XMS REPORT | Continuity of Care Document ---
:1950 External Reference #:[id number] Author Name Sabine Terrazas Care Team Providers Name Role Phone Adrián Arambula MD Primary Care Physician Unavailable Payers Date Identification Numbers Payment Provider Subscriber Policy Number: [id number] Medicare Angela Simon PayID: [id number] [address] [place] [address] Policy Number: [id number] Medicaid Angela Simon PayID: [id number] [address] [place] [address] Advance Directives Description No Information Available Problems Date Description Provider Status Onset: 05/26/2014 Spinal stenosis of lumbar region Delfin Rascon M.D. Active Onset: 11/26/2012 Mixed hyperlipidemia Domonique Prado M.D. Active Onset: 11/26/2012 Morbid obesity Domonique Prado M.D. Active Onset: 11/26/2012 Benign essential hypertension Domonique Prado M.D. Active Family History Date Family Member(s) Observation Comments General Heart Disease General Diabetes General cancer Paternal Grandfather due to MS () - age 50yr Paternal Grandmother due to Stroke () Paternal Grandmother due to Diabetes () Maternal Grandfather due to COPD () Maternal Grandmother due to Stroke () Social History Type Date Description Comments Sex Unknown Lives With Alone Occupation Disabled ETOH Use Denies alcohol use Tobacco Use Start: Unknown End: Patient is a former quit in 2009 Unknown smoker Recreational Drug Use Denies Drug Use Smoking Status Reviewed: 08/28/18 Patient is a former quit in 2009 smoker Exercise Type/Frequency Exercises regularly Allergies, Adverse Reactions, Alerts Date Description Reaction Status Severity Comments 09/11/2007 Sulfa Active 09/11/2007 PCN Active 09/11/2007 Bacitracin Active 09/29/2007 Neosporin Active rash 12/01/2009 Clindamycin Active rash Medications Medication Date Status Form Strength Qnty SIG Indications Ordering Provider Toprol XL 02/23/20 Active Tablets ER 25mg 15tab take 1/2 I47.2 Ifeoma 16 24HR s tablet by Tillman, mouth every M.D. day Glucosamine 11/27/19 Active Capsules 500mg 1 po bid Other 13 Ordering Provider Claritin 11/27/19 Active Capsules 10mg 30cap 1 tablet Other 13 s daily prn Ordering Provider Calcium 500 11/27/19 Active Tablets 500-400mg 1 po bid Other +D 13 -Unit Ordering Provider Tylenol 12/02/19 Active 500mg 2 po q6h Argenistaybmaricarmen 08 prn Kai Prado M.D. Vitamin daily 09/29/19 Active Capsules 1 PO qd Argenistaybmaricarmen 08 Kai Prado M.D. Lovastatin 09/11/19 Active Tablets 40mg 90tab 1 PO QHS Qutaybeh 08 s Kai Prado M.D. Citalopram Active Tablets 20mg 30tab 1 by mouth Unknown Hydrobromide 00 s every day Fluticasone Active Suspension 50mcg/Act Inhale Two Unknown Propionate 00 Sprays In One Nostril Every Day For Nasal Congestion Natural Active Solution 1 gtt both Unknown Balance Tears 00 eyes twice daily as directed Meclizine HCL Active Tablets 25mg Take One Unknown 00 Tablet By Mouth Three Times A Day as Needed For Dizziness Tab-A-Will Active Tablets Take One Unknown With 00 Tablet By Betacarente Mouth Every Day Meloxicam Active Tablets 7.5mg Take One Unknown 00 Tablet By Mouth Twice A Day as Needed For Joint Proctosol HC Active Cream 2.5% apply to Unknown 00 affected area four times a day Patanol Active Solution 0.1% 1 drop to Unknown 00 affected eyes for allergic eyes symptoms as needed Gabapentin Active Capsules 300mg Take 1 Unknown 00 Capsule po twice daily SM Tussin Active Liquid 100mg/5ML Take 15MLS Unknown Mucus + Chest 00 By Mouth Congestion Every 6 Adult Hours as Needed For Cough And Congestion Celexa 11/27/19 Hx Tablets 40mg 90tab 1 po qd Other 13 - s Ordering 03/07/20 Provider 14 Gabapentin 09/29/19 Hx Capsules 300mg 90cap 1 PO bid Qutaybeh 08 - s S. 11/27/19 Eve 13 Jerry Glucosamine 09/29/19 Hx Capsules 750mg 2 cap po qd Qutaybeh Sulfate 08 - S. 11/27/19 hagarth 13 PhilipDAndrae Gabapentin 09/11/19 Hx Capsules 100mg 150ca 1 po bid Qutaybeh 08 - ps S. 09/29/19 Eve Byrd M.D. Seroquel 09/11/19 Hx Tablets 50mg 1 po qhs Qutaybeh 08 - S. 12/02/19 Eve Boudreaux M.D. Miralax 09/11/19 Hx Packet [id number] 30uni Si Qutaybeh 08 - ts Packet S. 01/23/20 Daily Eve Pagan M.D. Lexapro 09/11/19 Hx Tablets 20mg 90tab 2 PO qd Qutaybeh 08 - s S. 11/27/19 Eve Higuera M.D. Glucosamine 09/11/19 Hx Powder 1500mg qd Qutaybeh 08 - S. 12/02/19 Eve Byrd M.D. Nabumetone 09/11/19 Hx Tablets 500mg 30tab 1 PO bid Qutaybeh 08 - s S. 01/23/20 Eve Pagan M.D. Seroquel Hx Tablets 50mg 1 po bid Unknown 00 - 11/27/19 13 Gabapentin Hx 300mg 1 po tid Unknown 00 - Unknown Cipro HC Hx Suspension 0.2-1% Instill 3 Unknown 00 - Drops In 04/19/20 Right Ear 16 Two Times A Day For 7 Days Immunizations Description No Information Available Vital Signs Date Vital Result Comment 08/28/2018 1:36pm Height 65 inches 5'5" Weight 239.00 lb Heart Rate 68 /min Respiratory Rate 18 /min Body Temperature 98.0 F Pain Level 5 BMI (Body Mass Index) 39.8 kg/m2 04/20/2016 1:07pm Height 65 inches 5'5" Weight 259.00 lb with shoes Heart Rate 70 /min BP Systolic Sitting 94 mmHg Ra lg cuff BP Diastolic Sitting 70 mmHg Ra lg cuff BP Systolic Standing 108 mmHg Ra lg cuff BP Diastolic Standing 70 mmHg Ra lg cuff Respiratory Rate 17 /min BMI (Body Mass Index) 43.1 kg/m2 Ejection Fraction 50-55% date 12/12/15 ECHO 02/23/2016 10:28am Height 65 inches 5'5" Weight 243.00 lb Heart Rate 50 /min BP Systolic 104 mmHg Rue, lg cuff BP Diastolic 66 mmHg Rue, lg cuff BP Systolic Sitting 108 mmHg Lue, lg cuff BP Diastolic Sitting 60 mmHg Lue, lg cuff BP Systolic Standing 106 mmHg Lue BP Diastolic Standing 70 mmHg Lue Respiratory Rate 16 /min BMI (Body Mass Index) 40.4 kg/m2 Ejection Fraction 50-55% as of 12/12/15 echo 05/26/2014 10:26am Height 65 inches 5'5" Weight 260.00 lb Heart Rate 66 /min BP Systolic Sitting 132 mmHg BP Diastolic Sitting 80 mmHg Pain Level 0 BMI (Body Mass Index) 43.3 kg/m2 04/19/2014 11:15am Height 65 inches 5'5" Heart Rate 84 /min BP Systolic 128 mmHg BP Diastolic 80 mmHg 03/08/2014 2:14pm Weight 260.00 lb Heart Rate 70 /min BP Systolic 134 mmHg BP Diastolic 90 mmHg 11/26/2012 3:42pm Height 63 inches 5'3" Weight 240.00 lb Heart Rate 80 /min Regular BP Systolic Sitting 108 mmHg BP Diastolic Sitting 80 mmHg BMI (Body Mass Index) 42.5 kg/m2 12/01/2009 2:13pm Height 63 inches 5'3" Weight 252.00 lb Heart Rate 82 /min BP Systolic Sitting 104 mmHg BP Diastolic Sitting 70 mmHg BMI (Body Mass Index) 44.6 kg/m2 12/01/2008 8:22am Height 63 inches 5'3" Weight 238.00 lb Heart Rate 72 /min BP Systolic Sitting 122 mmHg L BP Diastolic Sitting 70 mmHg L BMI (Body Mass Index) 42.2 kg/m2 12/02/2007 10:48am Height 63 inches 5'3" Weight 184.00 lb Heart Rate 62 /min BP Systolic Sitting 110 mmHg BP Diastolic Sitting 60 mmHg BMI (Body Mass Index) 32.6 kg/m2 09/29/2007 2:32pm Height 63 inches 5'3" Weight 188.00 lb Heart Rate 58 /min BP Systolic Sitting 120 mmHg BP Diastolic Sitting 70 mmHg BP Systolic Standing 120 mmHg BP Diastolic Standing 70 mmHg BP Systolic Lying Down 122 mmHg BP Diastolic Lying Down 70 mmHg Respiratory Rate 16 /min BMI (Body Mass Index) 33.3 kg/m2 Results Description No Information Available Procedures Date Code Description Status 08/28/2018 74869 Inject/Drain Joint/Bursa Major W/O US Completed 04/02/2016 58762 Cardiac Event Monitor Completed 03/14/2016 00108 Mobile Cardiovascular Telemetry Over 24 HR Up To 30 Days Completed 02/23/2016 56058 EKG Tracing & Interpretation Completed 12/15/2015 43494 Treadmill Interp/Report Only Completed 12/15/2015 13454 Stress Test Supervsn W/Out I/R Completed 12/12/2015 13629 ECHO Transthorasic Realtime 2D W Doppler & Color Flow Hosp Completed 05/15/2014 27886 Treadmill Interp/Report Only Completed 05/15/2014 48960 Stress Test Supervsn W/Out I/R Completed 05/15/2014 56093 EKG, Interpretation Only Completed 03/08/2014 61673 Xray Knee 3 Views Completed 11/26/2012 37511 EKG Tracing & Interpretation Completed 04/18/2010 03958 Holter Monitor Review (24 hr)dr review & interp only Completed 02/02/2010 43023 ECHO Transthoracic, Real-Time 2D With Doppler And Color Completed Flow 02/01/2010 11840 Holter Monitor Review (24 hr)dr review & interp only Completed 01/18/2010 02639 Holter Monitor Completed 01/18/2010 03988 Holter Monitor Review (24 hr)dr review & interp only Completed 12/01/2009 86964 EKG Tracing & Interpretation Completed 01/12/2009 34800 ECHO Transthoracic, Real-Time 2D With Doppler And Color Completed Flow 12/01/2008 89277 EKG Tracing & Interpretation Completed 12/15/2007 87435 Echocardiography, Transesophageal, Real Time W/Image 2D Completed W/W/O M-M 12/15/2007 10190 Echocardiography, Transesophageal, Real Time W/Image 2D Completed W/W/O M-M 12/15/2007 88757 Pulse Wave/Continuous-Interp.RPT Completed 12/15/2007 53815 Color Flow Doppler/Interp & Reprt Completed 12/15/2007 23026 Color Flow Doppler/Interp & Reprt Completed 11/21/2007 78769 Stress ECHO Interpretation/Report Hospital Completed 11/21/2007 98324 Treadmill Interp/Report Only Completed 11/21/2007 87778 Treadmill Interp/Report Only Completed 11/21/2007 58008 Stress Test Supervsn W/Out I/R Completed 11/04/2007 91076 Stress Test Completed 11/04/2007 88433 Stress Test Completed 11/04/2007 13043 Stress Test Completed 11/04/2007 96105 Echocardiogram Completed 11/04/2007 62889 Echocardiogram Completed 11/04/2007 63653 Echocardiogram Completed 11/04/2007 50056 Pulse Doppler & Continuous Wave Completed 11/04/2007 65849 Pulse Doppler & Continuous Wave Completed 11/04/2007 70441 Color Doppler Completed 11/04/2007 19789 Color Doppler Completed 11/04/2007 45057 Color Doppler Completed 11/04/2007 82793 ECHO/Stress Completed 11/04/2007 98252 ECHO/Stress Completed 11/04/2007 60917 ECHO/Stress Completed 09/29/2007 33285 EKG Tracing & Interpretation Completed 09/29/2007 77365 EKG Tracing & Interpretation Completed Encounters Type Date Location Provider Dx Diagnosis Office Visit 04/20/2016 [facility] Feliberto Guerin I47.9 Paroxysmal 1:40p [facility] Steward DO FACC tachycardia, unspecified Office Visit 02/23/2016 [facility] Feliberto Guerin I47.2 Ventricular 10:40a Of [employer] [employer] Steward DO FACC tachycardia R42 Dizziness and giddiness Office Visit 12/15/2015 12:29p [place] Varun Davidson R42 Dizziness and Assoc,sravani Cherry D.[facility]. [facility] R51 Headache I47.2 Ventricular tachycardia I10 Essential (primary) hypertension Office Visit 12/14/2015 12:29p [place] Varun Davidson R42 Dizziness and Assoc,pc [facility] R51 Headache I47.2 Ventricular tachycardia I10 Essential (primary) hypertension Office Visit 12/13/2015 12:29p [facility] Delfin Quinn R4[facility] Jerry Dickey R51 Headache Office Visit 12/13/2015 12:29p [facility] Lety R42 Dizziness and Assoc,pc [facility]ists R51 Headache I10 Essential (primary) hypertension Office Visit 12/12/2015 12:28p [facility] Agnieszka Smith R42 Dizziness and Assoc,pc Ruben, THOMAS [facility] R51 Headache I10 Essential (primary) hypertension Office Visit 05/26/2014 Neurosurgery Delfin Rascon, 724.02 Spinal Stenosis , 10:30a Services Of [facility] Steward AT M.D. Lumbar Region, W/O Lawrence Neurogenic Claudication Office Visit 05/15/2014 [facility] Lisa 786.50 Pain Chest Unspec 5:56p Assoc,sravani Arita M.D. Hospitalists 272.4 Hyperlipidemia Other Unspec 401.9 Hypertension Unspec 278.00 Obesity Unspec Office Visit 05/14/2014 5:55p [facility] Willi 786.50 Pain Chest Assoc,pc Casey Chaparro.Velma Unspec Hospitalists 272.4 Hyperlipidemia Other Unspec 401.9 Hypertension Unspec 278.00 Obesity Unspec Office Visit 04/19/2014 10:00a [facility] Oumar Egan 719.46 Pain Joint Of Ivan Whitehead M.D. Lower Leg 715.16 Osteoarthrosis Localized Prim Lower Leg 724.03 Spinal Stenosis, Lumbar Region W/ Neurogenic Claudication Office Visit 03/08/2014 1:30p [facility] Sherry Rush 719.46 Pain Joint Of [facility] Edwards Lower Leg 715.16 Osteoarthrosis Localized Prim Lower Leg Office Visit 11/26/2012 [place] Domonique S. 401.1 Hypertension 3:40p Cardiology Jerry Prado Benign 278.01 Obesity Morbid 272.2 Hyperlipidemia Mixed Office Visit 12/01/2009 [place] Domonique S. 401.1 Hypertension 2:00p Cardiology Jerry Prado Benign 424.0 Mitral Valve Disorder 786.05 Shortness Of Breath 278.01 Obesity Morbid 794.31 Electrocardiogram (ECG) (EKG) Abnormal Office Visit 12/01/2008 8:40a [facility] Qutaybeh S. 745.5 Atrial Septal Jerry Prado Defect Ostium Secundum Type 401.1 Hypertension Benign 424.0 Mitral Valve Disorder Office Visit 12/02/2007 11:10a [facility] Qutaybeh S. 786.50 Pain Chest Jerry Prado Unspec 786.05 Shortness Of Breath 401.1 Hypertension Benign 491.0 Bronchitis Simple Chronic 785.1 Palpitations 745.5 Atrial Septal Defect Ostium Secundum Type 424.0 Mitral Valve Disorder Office Visit 11/21/2007 11:00a [facility] Qutaybeh S. 786.50 Pain Chest Jerry Prado Unspec 786.05 Shortness Of Breath 401.1 Hypertension Benign 491.0 Bronchitis Simple Chronic Office Visit 09/29/2007 2:20p [facility] Qutaybeh S. 785.1 Palpitations Jerry Prado 786.50 Pain Chest Unspec 780.4 Dizziness & Giddiness 496 COPD Airway Obstruction Chronic Not Class Elsewhere 794.31 Electrocardiogram (ECG) (EKG) Abnormal Plan of Treatment Future Appointment(s):10/27/2018 2:00 pm - Joseph Cárdenas MD at [facility]08/28/2018 - Joseph Cárdenas, MDM25.561 Pain in right kneeNew Therapy:Physical TherapyFollow up:Follow up: 2 months prnS80.211A Abrasion, right knee, initial lacgfckjoC40.01xA Contusion of right knee, initial encounter
[2018-09-12 13:27] LABS: ALT 12 U/L (7-52); AST 14 U/L (13-39); Albumin 4.1 g/dL (3.2-5.2); Albumin/Globulin Ratio 1.5 (1-3); Alkaline Phosphatase 55 U/L (34-104); Anion Gap 6 mmol/L (2-11); BUN/Creatinine Ratio 29.5 (8-20); Blood Urea Nitrogen 23 mg/dL (6-24); CO2 Carbon Dioxide 27 mmol/L (22-32); Calcium 9.2 mg/dL (8.6-10.3); Chloride 104 mmol/L (101-111); EGFR African American 89.1 (>60); EGFR Non-African American 73.7 (>60); Globulin 2.7 g/dL (2-4); Glucose 99 mg/dL (70-100); Potassium 4.1 mmol/L (3.5-5.0); Sodium 137 mmol/L (135-145); Total Protein 6.8 g/dL (6.4-8.9)
[2018-09-12 13:41] LABS: Acetaminophen < 15 mcg/mL; Alcohol < 10 mg/dL (<10); Salicylate < 2.50 mg/dL (<30)
[2018-09-12 13:55] LABS: TSH (Thyroid Stimulating Horm) 2.06 mcIU/mL (0.34-5.60)
[2018-09-12 13:59] LABS: Urine Appearance Clear; Urine Bilirubin Negative (Negative); Urine Blood Negative (Negative); Urine Color Straw; Urine Glucose Negative (Negative); Urine Ketones Negative (Negative); Urine Nitrite Negative (Negative); Urine Protein Negative (Negative); Urine Specific Gravity 1.004 (1.010-1.030); Urine Urobilinogen Negative (Negative)
[2018-09-12 14:10] LABS: Barbiturates Urine Screen None Detected (None Detect); Benzodiazepine Urine Screen None Detected (None Detect); Urine Cannabinoids Screen None Detected (None Detect)
== END 2018-09-12 16:11 | disposition home or self-care (01) ==
LOC: ED 12:11
DX: F43.20 Adjustment disorder, unspecified (principal); R07.9 Chest pain, unspecified; F41.9 Anxiety disorder, unspecified; F32.9 Major depressive disorder, single episode, unspecified; Z87.891 Personal history of nicotine dependence; R45.851 Suicidal ideations
CPT/HCPCS: 36415; 71046; 80053; 80307; 80320; 80329; 81003; 84443; 84484; 85025; 93005; 99285; G0480

== ENCOUNTER 2019-01-17 19:50 | Emergency (ER) | payer MEDICARE, MEDICAID ==
--- NOTE | 2019-01-17 20:00 | ED ---
Dizziness - HPI Summary HPI Summary: This patient is a 69 year old F BIBA to ED via EMS with a chief complaint of dizziness since noon. Patient lives alone at home, where she has central air that was on. She was not hot at home. Patient has a history of vertigo, and she reports this feels similar. She took meclizine, which helped her symptoms a little bit. Patient also used her inhaler, which helped a little bit too. The patient rates the pain 0/10 in severity. Symptoms aggravated by nothing. Symptoms alleviated by meclizine and inhaler. Patient reports CP (left anterior) , SOB. - History Of Current Complaint Chief Complaint: EDDizziness Stated Complaint: "DIFF BREATHING PER EMS" Time Seen by Provider: 01/17/19 19:52 Hx Obtained From: Patient Timing: Constant Severity Initially: Mild Severity Currently: Mild Aggravating Factor(s): Nothing Alleviating Factor(s): Other - Meclizine, inhaler Associated Signs And Symptoms: Positive: Chest Pain, Other: - SOB - Allergies/Home Medications Allergies/Adverse Reactions: Allergies Allergy/AdvReac Type Severity Reaction Status Date / Time bacitracin Allergy Unknown Verified 09/12/18 12:26 [From Neosporin Reaction ([id number])] Details clindamycin Allergy Unknown Verified 09/12/18 12:26 Reaction Details Iodinated Contrast- Oral and Allergy Unknown Verified 09/12/18 12:26 IV Dye Reaction Details neomycin Allergy Unknown Verified 09/12/18 12:26 [From Neosporin Reaction ([id number])] Details Penicillins Allergy Unknown Verified 09/12/18 12:26 Reaction Details polymyxin B Allergy Unknown Verified 09/12/18 12:26 [From Neosporin Reaction ([id number])] Details Sulfa (Sulfonamide Allergy Unknown Verified 09/12/18 12:26 Antibiotics) Reaction Details PMH/Surg Hx/FS Hx/Imm Hx Endocrine/Hematology History: Denies: Hx Diabetes Cardiovascular History: Reports: Hx Angina, Hx Hypercholesterolemia, Hx Hypertension - not on medication, Other Cardiovascular Problems/Disorders - NSVT , HYPERCHOLESTEROLEMIA Denies: Hx Congestive Heart Failure, Hx Deep Vein Thrombosis, Hx Pacemaker/ ICD Respiratory History: Reports: Hx Asthma, Hx Chronic Bronchitis, Hx Chronic Obstructive Pulmonary Disease (COPD), Other Respiratory Problems/Disorders - hx bronchitis Denies: Hx Pulmonary Embolism GI History: Reports: Hx Gall Bladder Disease - gallbladder surgery, gallstones, Other GI Disorders - gallbladder surgery, gallstones History: Denies: Hx Dialysis, Hx Renal Disease Musculoskeletal History: Reports: Hx Arthritis, Other Musculoskeletal History - arthritis Sensory History: Reports: Hx Vision Problem, Hx Hearing Aid - rt ear, Hx Hearing Problem Opthamlomology History: Reports: Hx Vision Problem Neurological History: Reports: Hx Headaches, Hx Seizures Psychiatric History: Reports: Hx Depression, Other Psychiatric Issues/Disorders - Borderline personality disorder Denies: Hx Eating Disorder, Hx Panic Disorder, Hx of Violent Episodes Against Others - Cancer History Hx Chemotherapy: No Hx Radiation Therapy: No - Surgical History Surgery Procedure, Year, and Place: cholecystectomy. tubal. tonsillectomy - Immunization History Date of Tetanus Vaccine: UP TO DATE, YEAR UNKNOWB Date of Influenza Vaccine: FALL 2014 Infectious Disease History: No Infectious Disease History: Denies: Traveled Outside the [place] in Last 30 Days - Family History Known Family History: Positive: Cardiac Disease - CAD in grandfather - Social History Alcohol Use: None Hx Substance Use: No Substance Use Type: Reports: None Hx Tobacco Use: Yes Smoking Status (MU): Former Smoker Type: Cigarettes Amount Used/How Often: dates are estimates Have You Smoked in the Last Year: No Review of Systems Positive: Chest Pain Positive: Shortness Of Breath Neurological: Other - Dizziness All Other Systems Reviewed And Are Negative: Yes Physical Exam - Summary Physical Exam Summary: GENERAL: Patient is a well-developed and nourished F who is lying comfortable in the stretcher. Patient is not in any acute respiratory distress. HEAD AND FACE: Normocephalic EYES: PERRLA, EOMI x 2. EARS: Hearing grossly intact. MOUTH: Oropharynx within normal limits. NECK: Supple, trachea is midline, no adenopathy, no JVD, no carotid bruit. CHEST: Symmetric, no tenderness at palpation LUNGS: Clear to auscultation bilaterally. No wheezing or crackles. CVS: Regular rate and rhythm, S1 and S2 present, no murmurs or gallops appreciated. ABDOMEN: Soft, non-tender. Bowel sounds are normal. No abnormal abdominal pulsations. EXTREMITIES: Full ROM in all major joints, no edema, no cyanosis or clubbing. NEURO: Alert and oriented x 3. No acute neurological deficits. Speech is normal and follows commands. Cranial nerves II-XII grossly intact, no dysmetria finger to nose, nml heel to moses. SKIN: Dry and warm Triage Information Reviewed: Yes Vital Signs On Initial Exam: Initial Vitals Temp Pulse Resp BP Pulse Ox 98.8 F 70 18 142/101 93 01/17/19 19:52 01/17/19 19:52 01/17/19 19:52 01/17/19 19:52 01/17/19 19:52 Vital Signs Reviewed: Yes Diagnostics - Vital Signs Vital Signs Temp Pulse Resp BP Pulse Ox 01/17/19 19:52 98.8 F 70 18 142/101 93 - Laboratory Result Diagrams: 01/17/19 21:10 01/17/19 21:10 Lab Statement: Any lab studies that have been ordered have been reviewed, and results considered in the medical decision making process. - Radiology CXR Radiology Interpretation Completed By: ED Physician Summary of Radiographic Findings: No PNA, elevated left hemidiaphragm, pending official radiology report. - EKG 2000 Cardiac Rate: NL - 72 BPM EKG Rhythm: Sinus Rhythm Summary of EKG Findings: NSR at 72 BPM, LAD, Q waves in anterior leads. Re-Evaluation - Re-Evaluation First Eval Re-Evaluation Time: 21:14 Change: Improved Comment: Patient reports feeling better. Dizzy Course/Dx - Course Course Of Treatment: This patient is a 69 year old F BIBA to ED via EMS with a chief complaint of dizziness since noon. EKG at 2000 revealed NSR at 72 BPM, LAD , Q waves in anterior leads. In the ED course, patient received Duoneb, Decadron , and fluids. CXR revealed no PNA, elevated left hemidiaphragm, pending official radiology report. Blood work obtained. The patient has an elevated D- dimer at 517, but age adjusted it is normal. Because the patient is allergic to contrast, I will get a CT chest w/o contrast to clarify her CXR. Patient will be signed out to Dr. Cole at shift change at 2200 on 01/17/[address] chest and disposition. - Diagnoses Provider Diagnoses: Dizziness, Pancreatic mass - Provider Notifications Discussed Care Of Patient With: Chuckie Cannon Time Discussed With Above Provider: 21:47 Instructed by Provider To: Other - Discussed patient case with Dr. Cannon, hospitalist, who recommended a CT chest w/o contrast because the patient is allergic to contrast. Discharge - Sign-Out/Discharge Documenting (check all that apply): Sign-Out Patient Signing out patient TO: Kenneth Cole Patient Received Moderate/Deep Sedation with Procedure: No - Discharge Plan Condition: Stable Disposition: HOME Patient Education Materials: Pancreatic Cancer (DC), Dizziness (ED) Referrals: Alem Santana MD [Medical Doctor] - 3 Days Berta Castro PA [Primary Care Provider] - 3 Days Additional Instructions: The pancreatic mass that you have had since 2016 is getting bigger and you need to be evaluated for this. 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 Return to ED for any new or worsening symptoms. - Billing Disposition and Condition Condition: STABLE Disposition: Home - Attestation Statements Document Initiated by Betito: Yes Documenting Scribe: Azam Posadas Provider For Whom Betito is Documenting (Include Credential): Claudio Bhandari MD Scribe Attestation: I, Azam Posadas, scribed for Claudio Bhandari MD on 01/18/19 at 1022. Scribe Documentation Reviewed: Yes Provider Attestation: The documentation as recorded by the Azam ireland accurately reflects the service I personally performed and the decisions made by me, Claudio Bhandari MD Status of Scribsergey Document: Viewed
[2019-01-17] MEDS ORDERED: NS 0.9% 1000 ML** 1,000 ML IV ONE (20:11)
[2019-01-17] MEDS ORDERED: Dexamethasone IV* 4 MG/ML 1 ML (4 MG) IV SLOW PU ONE (20:15)
[2019-01-17] MEDS ORDERED: Albuterol/Ipratropium NEB.SOL* Albuterol 2.5 MG/Ipratropium 0.5 MG 3 ML INH ONE (20:15)
[2019-01-17 21:23] LABS: ABS Eosinophils 0.1 10^3/ul (0-0.6); ABS Lymphocytes 1.5 10^3/ul (1.0-4.8); ABS Monocytes 0.6 10^3/ul (0-0.8); ABS Neutrophils 5.2 10^3/ul (1.5-7.7); Eosinophil % 1.2 %; Hematocrit 38 % (35-47); Hemoglobin 12.4 g/dL (12.0-16.0); Lymphocyte % 20.2 %; Mean Corpuscular HGB Conc 33 g/dL (31-36); Mean Corpuscular Hemoglobin 29 pg (27-31); Mean Corpuscular Volume 90 fL (80-97); Mean Platelet Volume 7.7 fL (7.4-10.4); Platelet Count 323 10^3/uL (150-450); Red Blood Count 4.26 10^6 /uL (3.70-4.87); Red Cell Distribution Width 14 % (10-15); White Blood Count 7.4 10^3/uL (3.5-10.8)
[2019-01-17 21:30] LABS: Activated Partial Thrombo Time 30.6 seconds (26.0-38.0); INR 0.9 (0.82-1.09)
[2019-01-17 21:40] LABS: Albumin 4.1 g/dL (3.2-5.2); Albumin/Globulin Ratio 1.4 (1-3); BUN/Creatinine Ratio 24.7 (8-20); Calcium 9.7 mg/dL (8.6-10.3); EGFR African American 95.9 (>60); EGFR Non-African American 79.3 (>60); Magnesium 2.2 mg/dL (1.9-2.7); Total Bilirubin 0.5 mg/dL (0.2-1.0); Total Protein 7.1 g/dL (6.4-8.9)
[2019-01-17 21:47] LABS: Urine Appearance Cloudy; Urine Bacteria 1+ (Absent); Urine Bilirubin Negative (Negative); Urine Blood Negative (Negative); Urine Color Yellow; Urine Glucose Negative (Negative); Urine Ketones Negative (Negative); Urine Nitrite Negative (Negative); Urine Protein Negative (Negative); Urine Red Blood Cell Trace(0-2/hpf) (Absent); Urine Specific Gravity 1.004 (1.010-1.030); Urine Squamous Epithelial Cell Present (Absent); Urine Urobilinogen Negative (Negative); Urine White Blood Cell 2+(11-20/hpf) (Absent)
[2019-01-18] MEDS ORDERED: Iohexol 350* (CONTRAST) 500 ML MDV IV ONE (01:41)
[2019-01-18] MEDS ORDERED: diPHENhydraMINE IV* 50 MG/ML 1 ml VIAL (BENADRYL) IV ONE (01:52)
--- NOTE | 2019-01-18 02:39 | ED ---
Progress - Progress Note Progress Note: Patient is received as a sign-out from Dr. Bhandari to Dr. Cole at 2200 01/17/[address] chest. CHEST CT IMPRESSION: 1. No pulmonary consolidation. No pleural effusion or pneumothorax. 2. Large hiatal hernia which a portion of the sac is located in the thoracic cage. 3. Large epigastric mass located behind the stomach and anterior to the splenic vein. This was seen on prior CT study of 04/19/2016 and has grown in size. I do not have the prior report for review. There are also prior CT scans of the chest and abdomen which are not available for review. Consider advanced imaging like an MRI study. THIS REPORT WAS REVIEWED BY DR. COLE. 0054 - Discussed results of CT Chest with Dr. Moya, radiologist. He recommends CTA Chest/Abdomen/Pelvis. 0057 - Results of CT were discussed with the patient. 0119 - According to medical records, patient had a CT with IV contrast in 2015 that revealed no mass. CTA ABDOMEN/PELVIS IMPRESSION: 1. No acute findings. 2. Suboptimal enhancement of the pulmonary arterial system. Consider lower extremity venous duplex exam and or VQ scan. 3. Large hiatal hernia. 4. Hypodense lesion located in the right thyroid lobe. This measures 1.2 cm in maximum length. This does not require further assessment. CTA CHEST IMPRESSION 1. Growing lobulated low-density mass arising from the body of the pancreas. This lesion has some focal calcification and may represent a tumor of the pancreas. Suggest further workup with an MRI exam. This lesion abuts the splenic vein and portal vein with an 180 degree arc. No apparent encasement. 2. Fatty lesions located within the right kidney. Largest lesion measures 2.7 cm in length and is consistent with an angiomyolipoma. 3. Diverticular changes involving the colon. No evidence of acute diverticulitis. THIS REPORT WAS REVIEWED BY DR. COLE 0442 - Patient's case was discussed with Dr. Cannon, Dr. Cannon states that the patient has a history of pancreatic mass and the patient can follow up on this as an outpatient. Results of labs and tests were discussed with the patient. Patient will be discharged to home and follow up with PCP within three days. Strict return precautions given. Patient agreeable with this plan. - EKG/XRAY/CT CT: SEE ABOVE Re-Evaluation - Re-Evaluation First Eval Re-Evaluation Time: 21:14 Change: Improved Comment: Patient reports feeling better. Course/Dx - Course Course Of Treatment: Patient is received as a sign-out from Dr. Bhandari to Dr. Cole at 2200 01/17/[address] chest. CHEST CT IMPRESSION: 1. No pulmonary consolidation. No pleural effusion or pneumothorax. 2. Large hiatal hernia which a portion of the sac is located in the thoracic. cage. 3. Large epigastric mass located behind the stomach and anterior to the splenic. vein. This was seen on prior CT study of 04/19/2016 and has grown in size. I do. not have the prior report for review. There are also prior CT scans of the. chest and abdomen which are not available for review. Consider advanced imaging. like an MRI study. THIS REPORT WAS REVIEWED BY DR. COLE. 0054 - Discussed results of CT Chest with Dr. Moya, radiologist. He recommends CTA Chest/Abdomen/Pelvis. 0057 - Results of CT were discussed with the patient. 0119 - According to medical records, patient had a CT with IV contrast in 2015 that revealed no mass. CTA ABDOMEN/PELVIS IMPRESSION: 1. No acute findings. 2. Suboptimal enhancement of the pulmonary arterial system. Consider lower. extremity venous duplex exam and or VQ scan. 3. Large hiatal hernia. 4. Hypodense lesion located in the right thyroid lobe. This measures 1.2 cm in maximum length. This does not require further assessment. CTA CHEST IMPRESSION. 1. Growing lobulated low-density mass arising from the body of the pancreas. This lesion has some focal calcification and may represent a tumor of the. pancreas. Suggest further workup with an MRI exam. This lesion abuts the. splenic vein and portal vein with an 180 degree arc. No apparent encasement. 2. Fatty lesions located within the right kidney. Largest lesion measures 2.7. cm in length and is consistent with an angiomyolipoma. 3. Diverticular changes involving the colon. No evidence of acute. diverticulitis. THIS REPORT WAS REVIEWED BY DR. COLE. 0442 - Patient's case was discussed with Dr. Cannon, Dr. Cannon states that the patient has a history of pancreatic mass and the patient can follow up on this as an outpatient. Results of labs and tests were discussed with the patient. Patient will be discharged to home and follow up with PCP within three days. Strict return precautions given. Patient agreeable with this plan. - Diagnoses Provider Diagnoses: Dizziness, Pancreatic mass - Provider Notifications Discussed Care Of Patient With: Chuckie Cannon Time Discussed With Above Provider: 04:42 Instructed by Provider To: Other - 0442 - Patient's case was discussed with Dr. Cannon, Dr. Cannon states that the patient has a history of pancreatic mass and the patient can follow up on this as an outpatient. Discharge - Sign-Out/Discharge Documenting (check all that apply): Patient Departure - discharge Patient Received Moderate/Deep Sedation with Procedure: No - Discharge Plan Condition: Stable Disposition: HOME Patient Education Materials: Pancreatic Cancer (DC), Dizziness (ED) Referrals: Berta Castro PA [Primary Care Provider] - 3 Days Alem Santana MD [Medical Doctor] - 3 Days Additional Instructions: The pancreatic mass that you have had since 2016 is getting bigger and you need to be evaluated for this. Follow up with [facility] and your primary care physician within three days. Return to ED for any new or worsening symptoms. - Billing Disposition and Condition Condition: STABLE Disposition: Home - Attestation Statements Document Initiated by Betito: Yes Documenting Scribe: TOÑO GUILLORY Provider For Whom Betito is Documenting (Include Credential): DEONNA COLE MD Scribe Attestation: TOÑO Mcdowell, scrdinorahed for DEONNA COLE MD on 01/18/19 at 0543. Scribe Documentation Reviewed: Yes Provider Attestation: The documentation as recorded by the TOÑO ireland accurately reflects the service I personally performed and the decisions made by RITU tyler MD Status of Scribe Document: Viewed
[2019-01-18 05:31] VITALS: BP 139/68
--- NOTE | 2019-01-19 16:50 | PN ---
Progress Note - Progress Note Date of Service: 01/17/19 Note: Urine culture >100k e. coli. Attempted to call pt. today at 1645 with no answer. Rx for keflex sent to pharmacy based on culture pt.'s allergies. Will attempt to call again in the morning.
--- NOTE | 2019-01-20 12:24 | PN ---
Progress Note - Progress Note Date of Service: 01/19/19 Note: Patient was called to make aware of Escherichia coli urine culture final results Keflex had been sent to her pharmacy in the previous day Nothing further required at this time I or Patient made aware.
== END 2019-01-18 06:20 | disposition home or self-care (01) ==
LOC: ED 19:50
DX: R42 Dizziness and giddiness (principal); K86.9 Disease of pancreas, unspecified; K44.9 Diaphragmatic hernia without obstruction or gangrene; R19.06 Epigastric swelling, mass or lump; E04.1 Nontoxic single thyroid nodule; Z88.0 Allergy status to penicillin; Z88.2 Allergy status to sulfonamides; Z88.8 Allergy status to other drugs, medicaments and biological substances; Z88.1 Allergy status to other antibiotic agents; Z91.041 Radiographic dye allergy status; I20.9 Angina pectoris, unspecified; E78.00 Pure hypercholesterolemia, unspecified; I10 Essential (primary) hypertension; J44.9 Chronic obstructive pulmonary disease, unspecified; Z87.891 Personal history of nicotine dependence
CPT/HCPCS: 36415; 71045; 71250; 71275; 74177; 80053; 81003; 81015; 82803; 83605; 83735; 83880; 84484; 85025; 85379; 85610; 85730; 87040; 87077; 87086; 87186; 93005; 96361; 96374; 96375; 99284; A9270-GY; J1100; J1200; Q9967

== ENCOUNTER 2019-06-25 17:37 | Emergency (ER) | payer MEDICARE ==
--- NOTE | 2019-06-25 18:07 | ED ---
Head Injury - HPI Summary HPI Summary: This pt is a 69 y/o female presenting to [facility] referred by PCP for head injury 3 days ago. Sister reports pt was bending down to put clothes in a hamper when she hit her frontal head on the edge of the bathroom sink. Denies LOC. Pt c/o headaches. Pt went to see her PCP today, Dr. Rain, and was sent to get a CT as an outpatient at 1630. Pt's PCP referred patient to the ED for small bleeds seen in cat scan today. Pt does not take blood thinners. Per sister, pt uses a walker to ambulate long distances but does not use it when she is at home. - History Of Current Complaint Chief Complaint: EDHeadInjury Stated Complaint: HEAD INJ FROM FALL PER SISTER Time Seen by Provider: 06/25/19 18:03 Hx Obtained From: Patient, Family/[employer] - Sister Mechanism Of Injury: Direct Blow Onset/Duration: Started Days Ago, Still Present Onset of Pain: Days Severity Currently: Mild Pain Intensity: 0 Location of Head Injury: Diffuse Location: Diffuse Aggravating Factor(s): Other: - nothing Alleviating Factor(s): Other: - nothing Associated Signs And Symptoms: Headache - Allergies/Home Medications Allergies/Adverse Reactions: Allergies Allergy/AdvReac Type Severity Reaction Status Date / Time bacitracin Allergy Unknown Verified 06/25/19 18:49 [From Neosporin Reaction ([id number])] Details clindamycin Allergy Unknown Verified 06/25/19 18:49 Reaction Details Iodinated Contrast Media Allergy Unknown Verified 06/25/19 18:49 [Iodinated Contrast- Oral Reaction and IV Dye] Details neomycin Allergy Unknown Verified 06/25/19 18:49 [From Neosporin Reaction ([id number])] Details Penicillins Allergy Unknown Verified 06/25/19 18:49 Reaction Details polymyxin B Allergy Unknown Verified 06/25/19 18:49 [From Neosporin Reaction ([id number])] Details Sulfa (Sulfonamide Allergy Unknown Verified 06/25/19 18:49 Antibiotics) Reaction Details PMH/Surg Hx/FS Hx/Imm Hx Endocrine/Hematology History: Denies: Hx Diabetes Cardiovascular History: Reports: Hx Angina, Hx Hypercholesterolemia, Hx Hypertension - not on medication, Other Cardiovascular Problems/Disorders - NSVT , HYPERCHOLESTEROLEMIA Denies: Hx Congestive Heart Failure, Hx Deep Vein Thrombosis, Hx Pacemaker/ ICD Respiratory History: Reports: Hx Asthma, Hx Chronic Bronchitis, Hx Chronic Obstructive Pulmonary Disease (COPD), Other Respiratory Problems/Disorders - hx bronchitis Denies: Hx Pulmonary Embolism GI History: Reports: Hx Gall Bladder Disease - gallbladder surgery, gallstones, Other GI Disorders - gallbladder surgery, gallstones History: Denies: Hx Dialysis, Hx Renal Disease Musculoskeletal History: Reports: Hx Arthritis, Other Musculoskeletal History - arthritis Sensory History: Reports: Hx Vision Problem, Hx Hearing Aid - rt ear, Hx Hearing Problem Opthamlomology History: Reports: Hx Vision Problem Neurological History: Reports: Hx Headaches, Hx Seizures Psychiatric History: Reports: Hx Depression, Other Psychiatric Issues/Disorders - Borderline personality disorder Denies: Hx Eating Disorder, Hx Panic Disorder, Hx of Violent Episodes Against Others - Cancer History Hx Chemotherapy: No Hx Radiation Therapy: No - Surgical History Surgical History: Yes Surgery Procedure, Year, and Place: cholecystectomy. tubal. tonsillectomy - Immunization History Date of Tetanus Vaccine: UP TO DATE, YEAR UNKNOWB Date of Influenza Vaccine: FALL 2014 Infectious Disease History: No Infectious Disease History: Denies: Traveled Outside the [place] in Last 30 Days - Family History Known Family History: Positive: Cardiac Disease - CAD in grandfather - Social History Alcohol Use: None Hx Substance Use: No Substance Use Type: Reports: None Hx Tobacco Use: Yes Smoking Status (MU): Former Smoker Type: Cigarettes Amount Used/How Often: dates are estimates Have You Smoked in the Last Year: No Review of Systems Negative: Fever, Chills Cardiovascular: Negative Respiratory: Negative Genitourinary: Negative Positive: Headache All Other Systems Reviewed And Are Negative: Yes Physical Exam - Summary Physical Exam Summary: Constitutional: Well-developed, Well-nourished, Alert. (-) Distressed Skin: Warm, Dry HENT: Normocephalic; Small ecchymosis to the right forehead/cheek Eyes: Conjunctiva normal Neck: Musculoskeletal ROM normal neck. (-) JVD, (-) Stridor Cardio: Rhythm regular, rate normal, Heart sounds normal; Intact distal pulses; Radial pulses are 2+ and symmetric. (-) Murmur Pulmonary/Chest wall: Effort normal. (-) Respiratory distress, (-) Wheezes, (-) Rales Abd: Soft, (-) tenderness, (-) Distension, (-) Guarding, (-) Rebound Musculoskeletal: (-) Edema Lymph: (-) Cervical adenopathy Neuro: Alert, Oriented x3 Psych: Mood and affect Normal Triage Information Reviewed: Yes Vital Signs On Initial Exam: Initial Vitals Temp Pulse Resp BP Pulse Ox 97.3 F 64 16 144/87 95 06/25/19 17:40 06/25/19 17:40 06/25/19 17:40 06/25/19 17:40 06/25/19 17:40 Vital Signs Reviewed: Yes Procedures - Sedation Patient Received Moderate/Deep Sedation with Procedure: No Diagnostics - Vital Signs Vital Signs Temp Pulse Resp BP Pulse Ox 06/25/19 17:40 97.3 F 64 16 144/87 95 - Laboratory Result Diagrams: 06/25/19 18:18 06/25/19 18:18 Lab Statement: Any lab studies that have been ordered have been reviewed, and results considered in the medical decision making process. - CT Brain CT (done as an outpatient today 06/25/19) CT Interpretation Completed By: Radiologist Summary of CT Findings: IMPRESSION: 1. At the right basal ganglia there has been interval appearance of 2 punctate hyperattenuating foci that could be parenchymal hemorrhage secondary to traumatic axonal injury. 2. Otherwise normal CT of the brain without definite extra-axial hemorrhage or acute bony injury. Dr. Dunne has reviewed this report. Re-Evaluation - Re-Evaluation First Eval Re-Evaluation Time: 18:19 Comment: Called radiology to push CT images to [facility]. Head Injury Course/Dx Course Of Treatment: 69-year-old female who presents with closed head injury. Head CT obtained earlier shows possible small punctate basal ganglia bleed. GCS 15. Not on blood thinners. We'll discuss with neurosurgery at [facility]. Additionally we'll obtain C-spine imaging and basic labs. - Diagnoses Provider Diagnoses: Closed head injury - Physician Notifications Discussed Care Of Patient With: Dr. Vega Time Discussed With Above Provider: 18:27 Instructed by Provider To: Other - Discussed with Dr. Vega, neurosurgeon from [facility], reports he doesn't think brain CT is consistent with hemorrhage so no acute surgical intervention needed at this time. Discharge ED - Sign-Out/Discharge Documenting (check all that apply): Sign-Out Patient Signing out patient TO: Paul Pierson - pending CT cervical spine - Discharge Plan Condition: Stable Disposition: HOME Patient Education Materials: Head Injury (ED) Referrals: Yenny Rain MD [Primary Care Provider] - Additional Instructions: Come back with slurred speech, one-sided weakness, repeated vomiting, or any other concerning symptoms. - Billing Disposition and Condition Condition: STABLE Disposition: Home - Attestation Statements Document Initiated by Scribe: Yes Documenting Scribe: Liz Dougherty Provider For Whom Betito is Documenting (Include Credential): Ellis Dunne MD Scribe Attestation: Liz Mcdowell, scribed for Ellis Dunne MD on 06/26/19 at 0706. Scribe Documentation Reviewed: Yes Provider Attestation: The documentation as recorded by the Liz ireland accurately reflects the service I personally performed and the decisions made by , Ellis Dunne MD Status of Scribe Document: Viewed
[2019-06-25 18:28] LABS: ABS Basophils 0.1 10^3/ul (0-0.2); ABS Eosinophils 0.1 10^3/ul (0-0.6); ABS Lymphocytes 1.8 10^3/ul (1.0-4.8); ABS Monocytes 0.7 10^3/ul (0-0.8); ABS Neutrophils 6.1 10^3/ul (1.5-7.7); Eosinophil % 0.7 %; Hematocrit 39 % (35-47); Hemoglobin 12.8 g/dL (12.0-16.0); Lymphocyte % 20.6 %; Mean Corpuscular HGB Conc 33 g/dL (31-36); Mean Corpuscular Hemoglobin 29 pg (27-31); Mean Corpuscular Volume 88 fL (80-97); Mean Platelet Volume 7.2 fL (7.4-10.4); Platelet Count 339 10^3/uL (150-450); Red Cell Distribution Width 14 % (10-15); White Blood Count 8.8 10^3/uL (3.5-10.8)
--- OUTSIDE RECORDS SUMMARY | 2019-06-25 18:32 | XMS REPORT | Continuity of Care Document ---
:1950 External Reference #:[id number] Author Name Crissy Grey (transmitted by agent of provider Adrián Arambula) Address [address] [place] [address] Care Team Providers Name Role Phone Miky Thornton MD - Internal Care Team Information Net Sorter [phone] Medicine Charu Pastrana DPM - Transformer Inspector Care Team Information Net Sorter Orth[facility] - Care Team Information Net Sorter [phone] Orthopaedic Surgery [facility] - Care Team Information Net Sorter [phone] Nutrition, Education Ryan Somers MD - Cardiovascular Care Team Information Net Sorter [phone] Disease Felibreto Guerin DO - Cardiovascular Care Team Information Net Sorter [phone] Disease Problems Active Problems Provider Date Essential hypertension Adrián Arambula M.D. Onset: 05/07/2005 Benign essential hypertension Adrián Arambula M.D. Onset: 05/07/2005 Pure hypercholesterolemia Adrián Arambula M.D. Onset: 05/07/2005 Degenerative joint disease involving multiple Adriná Arambula M.D. Onset: joints Dysthymia Adrián Arambula M.D. Onset: 05/07/2005 Seizure Adrián Arambula M.D. Onset: 05/07/2005 Localized, primary osteoarthritis Adrián Arambula M.D. Onset: 11/01/2006 Osteoporosis Adrián Arambula M.D. Onset: 11/01/2006 Morbid obesity Adrián Arambula M.D. Onset: 12/05/2010 External hemorrhoids without complication Sopchak, Steve, D.O. Onset: 2014 Impaired fasting glycaemia Adrián Arambula M.D. Onset: 10/04/2015 Allergic rhinitis Jessica Shah PA Onset: 04/11/2016 Obesity Jessica Shah PA Onset: 04/11/2016 Anxiety state Jessica Shah PA Onset: 08/22/2016 Disorder of bone Berta Castro P.AAndrae Onset: 07/15/2018 Knee pain Berta Castro P.AAndrae Onset: 07/15/2018 Cyst of pancreas Berta Castro P.AAndrae Onset: 02/06/2019 Social History Type Date Description Comments Sex Unknown Tobacco Use Start: Unknown End: Unknown Former Cigarette Smoker quit ~1999 Smoking Status Reviewed: 04/15/18 Former Cigarette Smoker quit ~1999 Tobacco Use Start: Unknown Non Smoker Allergies, Adverse Reactions, Alerts Active Allergies Reaction Severity Comments Date Sulfa Rash 05/07/2005 Penicillin rash (in childhood; mom could not 05/07/2005 recall details) Clindamycin Rash 10/21/2009 Contrast Dye nausea and vomitting 01/09/2012 Inactive Allergies Bacitracin rash 05/07/2005 Neosporin rash 12/10/2007 Medications Active Medications SIG Qnty Indications Ordering Date Provider Diclofenac Sodium take 1-2 tablets 60tabs M25.562 Silcoff, 01/17/2018 25mg by mouth two Jerry Sampson Tablets DR times a day to three times a day for pain Cat For Companionship Cat in home 1units J44.9 Silcoff, 01/16/2018 Jerry Sampson Advair HFA Inhale Two Puffs 12units J45.40 Silcoff, 10/31/2017 By Mouth Twice A Jerry Sampson 115-21mcg/Act Aerosol Day Until Gone,Use With Spacer,Rinse Moth After Use Proair HFA Inhale One To Two 8.5units R05 Silcoff, 04/12/2017 108(90Base) Puffs By Mouth Jerry Sampson mcg/Act Aerosol Four Times A Day as Needed For Breathing Walker With Wheels Use with walking 1units R42 Silcoff, 12/11/2016 Jerry Sampson M51.36 M54.5 Blood Pressure Kit use as directed 1units R03.0 Jessica Shah PA 2016 Kit Glucosamine 3 capsules po daily 90caps M25.561 Jessica Shah PA 2015 Chondroitin 500 Complex 500Comp Capsules Prazosin HCL 1 cap by mouth 30 Unknown 05/15/2016 1mg Capsules min. before bed Gabapentin Take One Capsule By 60caps F41.9 Adrián Arambula, 03/07/2016 300mg Capsules Mouth Twice A Day M.D. (Morning,Evening) For Anxiety Metoprolol Succinate take 1/2 tablet by 45tabs I47.2 Adrián Arambula, ER mouth every day for M.D. 25mg Tablets ER 24HR svt Shower Chair 1units E66.01 Adrián Arambula, 01/19/2016 M.D. R26.9 Citalopram Hydrobromide 1 tablet by mouth every 30tabs F34.1 Unknown 12/05 20mg Tablets day F41.9 Calcium Carbonate-Vitamin Take One Tablet By 60tabs Steve Ocampo, 10/29 D Mouth Twice A Day D.O. [id number] Tablets Tab-A-Will Take One Tablet By 30tabs Steve Ocampo, 01/22/2014 Tablets Mouth Every Day D.O. Cane use as needed to Ralf, 10/22/2011 assist with Jerry Sampson ambulation/balance Saline Nasal Partridge use as often as 1Bottle Ralf, 12/04/2010 0.65% every 30min, for Jerry Sampson Solution nasal congestion Depends Adult extra large; use 1 192units R32 Yuecogrupo, 06/06/2010 twice a day, as Jerry Sampson directed for urinary incontinence Pepto-Bismol 30ml q6h prn for 120ml Silcogrupo, 05/05/2010 524mg/30ML diarrhea or upset Jerry Sampson Suspension stomach Natural Tear as directed one Unknown 02/06/2010 drop twice daily in both eyes Fluticasone Propionate Partridge Two Sprays In 16units J31.0 Ralf, 2008 Each Nostril Every Jerry Sampson 50mcg/Act Suspension Day For Nasal Congestion H65.01 Lovastatin Take One Tablet By 30tabs E78.0 Adrián Arambula, 05/07/2005 40mg Tablets Mouth Every Day For M.D. High Cholesterol History Medications Loratadine Take One Tablet 30tabs J30.9 Adrián Arambula, 05/01/2019 - 10mg By Mouth Every M.D. 05/11/2019 Tablets Day as Needed For Allergy Symptoms Olopatadine HCL Instill 1 Drop To 5units H10.9 Adrián Arambula, 2018 - 0.1% Affected Eye Two M.D. 01/12/2019 Solution Times A Day as Needed For Allergic Eye Symptoms,Space Apart By 6-8 Hours Medications Administered in Office Medication SIG Qnty Indications Ordering Provider Date injection, anderson, 10 mg Adrián Arambula M.D. 11/11/2013 Injection TB Intradermal Test Adrián Arambula M.D. 11/09/2009 Injection injection, anderson, 10 mg Adrián Arambula M.D. 04/06/2009 Injection TB Intradermal Test Adrián Arambula M.D. 11/08/2008 Injection injection, ponchoalog, 10 mg Adrián Arambula M.D. 09/28/2008 Injection injection, anderson, 10 mg Adrián Arambula M.D. 05/04/2008 Injection TB Intradermal Test Adrián Arambula M.D. 11/17/2007 Injection injection, anderson, 10 mg Adrián Arambula M.D. 10/01/2007 Injection injection, anderson, 10 mg Adrián Arambula M.D. 03/12/2007 Injection injection, kenalog, 10 mg Adrián Arambula M.D. 11/08/2006 Injection TB Intradermal Test Adrián Arambula M.D. 11/01/2006 Injection TB Intradermal Test Adrián Arambula M.D. 09/27/2005 Injection TB Intradermal Test Nurse's Schedule 09/27/2005 Injection Immunizations CPT Code Status Date Vaccine Lot # [id number] Given 03/09/2019 Influenza Vaccine Split Virus [place] [address] Given 04/08/2018 Shingrix Zoster (Shingles) Vaccine (HZV) Recomb,Subnit,Adjuvanted 79082 Given 03/13/2018 Influenza Vaccine, Inactivated, Subunit, [id number] Adjuvanted, For Intrmusc 96561 Given 11/17/2017 Shingrix Zoster (Shingles) Vaccine (HZV) Recomb,Subnit,Adjuvanted 09656 Given 02/28/2017 Influenza Vaccine Split Virus Preservative Free Im [id number] Use 84946 Given 12/21/2016 Td Immunization [id number] 07457 Given 03/07/2016 Influenza Vaccine Split Virus Preservative Free Im [id number] Use 00647 Given 01/25/2016 Prevnar 13 [id number] 24247 Given 04/15/2015 Influenza Virus Vaccine, Quadrivalent, Split, [id number] Preservative Free 35883 Given 07/07/2014 Zostavax 99683 Given 05/11/2014 Flu, Split Virus 3Yrs [id number] 51573 Given 05/19/2013 Pneumococcal Immunization 48874 Given 03/12/2011 Flu, Split Virus 3Yrs [id number] 90896 Given 09/21/2010 Pneumococcal Immunization [id number] 46273 Given 04/21/2010 Flu, Split Virus 3Yrs [id number] 68932 Given 04/06/2009 Flu, Split Virus 3Yrs [id number] 00601 Given 04/08/2008 Flu, Split Virus 3Yrs [id number] 08965 Given 04/26/2007 Flu, Split Virus 3Yrs [id number] 46831 Given 11/01/2006 Adacel or Boostrix, TDaP [id number] 60929 Given 05/14/2006 Flu, Split Virus 3Yrs [id number] 70417 Given 05/07/2005 Flu, Split Virus 3Yrs 40493 Given 10/14/1998 Td Immunization Vital Signs Date Vital Result Comment 05/12/2019 1:50pm BP Systolic 118 mmHg BP Diastolic 70 mmHg Weight 249.00 lb 05/01/2019 2:13pm BP Systolic 124 mmHg BP Diastolic 68 mmHg Heart Rate 78 /min Height 63 inches 5'3" Weight 250.00 lb BMI (Body Mass Index) 44.3 kg/m2 Results Test Acquired Date Facility Test Result H/L Range Note Laboratory test 05/12/2019 [facility] <pending> finding [phone] Lipid Profile 05/12/2019 [facility] Triglycerides 149 mg/dL 1 (Trig/Chol/HDL) [phone] Cholesterol 139 mg/dL 2 HDL Cholesterol 49.3 mg/dL 3 LDL Cholesterol 60 mg/dL 4 BUN/Creat/GFR 04/08/2019 [facility] Poc Blood Urea 24 mg/dL Normal 8- 26 [phone] Nitrogen Poc Creatinine 0.9 mg/dL Normal 0.6-1.3 5 Poc BUN/Creatinine Ratio 26.7 High 8-20 Egfr Non- 62.3 >60 Egfr 75.3 >60 6 Laboratory test 01/18/2019 [facility] Troponin-I 0.00 ng/mL <0.04 7 finding [phone] (TnI) Laboratory test 01/17/2019 [facility] Blood Culture SEE RESULT 8 finding [phone] BELOW Urine Culture And 01/17/2019 [facility] Urine Culture SEE RESULT 9 Sensitivities [phone] BELOW Laboratory test 01/17/2019 [facility] Partial 30.6 Normal 26.0-38. finding [phone] Thrombo Time seconds 0 PTT D Dimer Quantitative 517 ng/mL High Less Than 230 10 Inr/Protime 01/17/2019 [facility] Inr 0.90 Normal 0.82-1.09 11 [phone] CBC Auto Diff 01/17/2019 [facility] White Blood 7.4 10^3/uL Normal 3.5-10.8 [phone] Count Red Blood Count 4.26 10^6/uL Normal 3.70-4.87 Hemoglobin 12.4 g/dL Normal 12.0-16.0 Hematocrit 38 % Normal 35-47 Mean Corpuscular Volume 90 fL Normal 80-97 Mean Corpuscular Hemoglobin 29 pg Normal 27-31 Mean Corpuscular HGB Conc 33 g/dL Normal 31-36 Red Cell Distribution Width 14 % Normal 10-15 Platelet Count 323 10^3/uL Normal 150-450 Mean Platelet Volume 7.7 fL Normal 7.4-10.4 Abs Neutrophils 5.2 10^3/uL Normal 1.5-7.7 Abs Lymphocytes 1.5 10^3/uL Normal 1.0-4.8 Abs Monocytes 0.6 10^3/uL Normal 0-0.8 Abs Eosinophils 0.1 10^3/uL Normal 0-0.6 Abs Basophils 0.0 10^3/uL Normal 0-0.2 Abs Nucleated RBC 0.0 10^3/uL Granulocyte % 70.0 % Lymphocyte % 20.2 % Monocyte % 8.0 % Eosinophil % 1.2 % Basophil % 0.6 % Nucleated Red Blood Cells % 0.0 Urinalysis Profile 01/17/2019 [facility] Urine Color Yellow [phone] Urine Appearance Cloudy Urine Specific [place] 1.004 Low 1.010-1.030 Urine pH 7.0 Normal 5-9 Urine Urobilinogen Negative Negative Urine Ketones Negative Negative Urine Protein Negative Negative Urine Leukocytes 1+ Abnormal Negative Urine Blood Negative Negative Urine Nitrite Negative Negative Urine Bilirubin Negative Negative Urine Glucose Negative Negative Urine White Blood Cell 2+(11-20/hpf) Abnormal Absent Urine Red Blood Cell Trace(0-2/hpf) Absent Urine Bacteria 1+ Abnormal Absent Urine Squamous Epithelial Cell Present Abnormal Absent Laboratory test 01/17/2019 [facility] Magnesium 2.2 mg/dL Normal 1.9- 2.7 finding [phone] Troponin-I (TnI) 0.00 ng/mL <0.04 12 B-Type Natriuretic Peptide BNP 98 pg/mL <=100 Comp Metabolic Panel 01/17/2019 [facility] Sodium 138 mmol/L Normal 135-145 [phone] Potassium 4.0 mmol/L Normal 3.5-5.0 Chloride 104 mmol/L Normal 101-111 Co2 Carbon Dioxide 26 mmol/L Normal 22-32 Anion Gap 8 mmol/L Normal 2-11 Glucose 116 mg/dL High 70-100 Blood Urea Nitrogen 18 mg/dL Normal 6-24 Creatinine 0.73 mg/dL Normal 0.51-0.95 BUN/Creatinine Ratio 24.7 High 8-20 Calcium 9.7 mg/dL Normal 8.6-10.3 Total Protein 7.1 g/dL Normal 6.4-8.9 Albumin 4.1 g/dL Normal 3.2-5.2 Globulin 3.0 g/dL Normal 2-4 Albumin/Globulin Ratio 1.4 Normal 1-3 Total Bilirubin 0.50 mg/dL Normal 0.2-1.0 Alkaline Phosphatase 52 U/L Normal 34-104 Alt 12 U/L Normal 7-52 Ast 16 U/L Normal 13-39 Egfr Non- 79.3 >60 Egfr 95.9 >60 13 Laboratory test 01/17/2019 [facility] Lactic Acid 1.4 mmol/L Normal 0.5-2.0 14 finding [phone] Venous Blood Gas 01/17/2019 [facility] Venous Blood 7.38 Normal 7.32- 7.43 [phone] pH Venous Pco2 42 mmHg Normal 41-51 Venous Po2 < 38.0 mmHg Normal 35-45 Venous O2 Saturation 68.8 % Low 70-80 Venous Blood Base Excess -0.4 mmol/L Low 0.0-4.0 15 Venous Bicarbonate Hco3 23.8 mmol/L Low 24-28 Laboratory test 01/17/2019 [facility] Troponin-I (TnI) 0.01 ng/mL < 0.04 16 finding [phone] Laboratory test 01/13/2019 In House Hemoglobin A1c 5.9 finding 1 Desirable: <150 Borderline High: 150-199 High: 200-499 Very High: >500 2 Desirable: <200 Borderline High: 200-239 High: >239 3 Low: <40 Desirable: 40-60 High: >60 4 Desirable: <100 Near Optimal: 100-129 Borderline High: 130-159 High: 160-189 Very High: >189 5 Box Car Loader: [id number] 6 Because ethnic data is not always readily available, this report includes an eGFR for both -Americans and non- Americans. The National Kidney Disease Education Program (NKDEP) does not endorse the use of the MDRD equation for patients that are not between the ages of 18 and 70, are , have extremes of body size, muscle mass, or nutritional status, or are non- or non-. According to the National Kidney Foundation, irrespective of diagnosis, the stage of the disease is based on the level of kidney function: Stage Description GFR(mL/min/1.73 m(2)) 1 Kidney damage with normal or decreased GFR 90 2 Kidney damage with mild decrease in GFR 60-89 3 Moderate decrease in GFR 30-59 4 Severe decrease in GFR 15-29 5 Kidney failure <15 (or dialysis) 7 Troponin-I testing on Plasma Separator Tubes (PST) has a known false positive rate of 0.20-0.40%. All positive troponins reflex immediately to secondary confirmatory testing. Using the [employer] DxI 800 Access Immunoassay systems, the 99th percentile upper reference limit was demonstrated to be < 0.03 ng/mL. 8 SEE RESULT BELOW Name: HERNÁNDEZANGELA : [address]: Kenneth Cole MD Acct: [id number] Unit: [id number] AGE: 69 Location: ED Re01/17/19 SEX: F Status: DEP ER SPEC: [id number] PANCHO: 01/17/[address] [facility] [address]: Claudio Bhandari MD REQ: [id number] RECD: 01/17/19 STATUS: ROSE MARIE GAR DR: Berta HENRY _ SOURCE: BLOOD,VENO SPDESC: ORDERED: Blood Cult Procedure Result Reported Site Aerobic Culture Bottle Final 01/22/19- 2117 ML No Growth Day 5 Anaerobic Culture Bottle Final 01/22/19- 2117 ML No Growth Day 5 * ML - Main Lab . END OF REPORT DEPARTMENT OF PATHOLOGY, [address] [place] [address] Brent Morris M.D. Director [facility] # [id number] 9 SEE RESULT BELOW Name: ANGELA HERNÁNDEZ : [address]: Kenneth Cole MD Acct: [id number] Unit: [id number] AGE: 69 Location: ED Re01/17/19 SEX: F Status: DEP ER SPEC: [id number] PANCHO: 01/17/[address] [facility] [address]: Claudio Bhandari MD REQ: [id number] RECD: 01/17/19 STATUS: ROSE MARIE GAR DR: Berta Castro PA _ SOURCE: URINE SPDESC: ORDERED: Urine Culture Procedure Result Reported Site Urine Culture Final 01/19/19- 0823 ML Organism 1 ESCHERICHIA COLI [place] Count >100,000 (Many) CFU/ML 1. ESCHERICHIA COLI M.I.C. RX --------- ------ Ampicillin >=32 R Cefazolin <=4 S Cefepime <=1 S Ceftriaxone <=1 S Ciprofloxacin <=0.25 S Gentamicin <=1 S Levofloxacin <=0.12 S Meropenem <=0.25 S Nitrofurantoin <=16 S Tetracycline <=1 S Pipercillin/Tazobactam <=4 S Trimethoprim/Sulfamethoxazole <=20 S Amoxicillin/Clavulanic Acid 8 S Aztreonam <=1 S Contact the Microbiology Department for any additional antibiotic reporting. * ML - Main Lab . END OF REPORT DEPARTMENT OF PATHOLOGY, [address] [place] [address] Brent Morris M.D. Director [facility] # [id number] 10 Please note: The following may produce a false positive D Dimer test: - Rheumatoid factor greater than 60 IU/ml - Plasma hemoglobin greater than 0.05 gm/dl - Bilirubin greater than 50 mg/dl - Lipids greater than 1000 mg/dl - FDP greater than 20 ug/ml 11 Standard intensity warfarin therapeutic range: 2.0-3.0 High intensity warfarin therapeutic range: 2.5-3.5 12 Troponin-I testing on Plasma Separator Tubes (PST) has a known false positive rate of 0.20-0.40%. All positive troponins reflex immediately to secondary confirmatory testing. Using the [employer] 800 Access Immunoassay systems, the 99th percentile upper reference limit was demonstrated to be < 0.03 ng/mL. 13 Because ethnic data is not always readily available, this report includes an eGFR for both -Americans and non- Americans. The National Kidney Disease Education Program (NKDEP) does not endorse the use of the MDRD equation for patients that are not between the ages of 18 and 70, are , have extremes of body size, muscle mass, or nutritional status, or are non- or non-. According to the National Kidney Foundation, irrespective of diagnosis, the stage of the disease is based on the level of kidney function: Stage Description GFR(mL/min/1.73 m(2)) 1 Kidney damage with normal or decreased GFR 90 2 Kidney damage with mild decrease in GFR 60-89 3 Moderate decrease in GFR 30-59 4 Severe decrease in GFR 15-29 5 Kidney failure <15 (or dialysis) 14 [facility] Severe Sepsis and Septic Shock Management Bundle Measure requires all lactic acids initially measuring >2.0 mmol/L be repeated. 15 Reference ranges based on room air. 16 Troponin-I testing on Plasma Separator Tubes (PST) has a known false positive rate of 0.20-0.40%. All positive troponins reflex immediately to secondary confirmatory testing. Using the [employer] DxRapportive Access Immunoassay systems, the 99th percentile upper reference limit was demonstrated to be < 0.03 ng/mL. Procedures Date Code Description Status 02/06/2019 44637 Spirometry Completed 06/26/2018 [id number] Mammogram Completed 08/20/2017 [id number] Colonoscopy Completed Medical Devices Description No Information Available Encounters Type Date Location Provider Dx Diagnosis Office Visit 05/12/2019 Main Office Berta Castro N89.8 Other specified 1:40p P.A. noninflammatory disorders of vagina Z12.4 Encounter for screening for malignant neoplasm of cervix E66.9 Obesity, unspecified Office Visit 05/01/2019 2:00p Main Office Betra Castro I47.2 Ventricular P.A. tachycardia J45.30 Mild persistent asthma, uncomplicated E66.01 Morbid (severe) obesity due to excess calories I10 Essential (primary) hypertension M19.049 Primary osteoarthritis, unspecified hand F41.9 Anxiety disorder, unspecified R51 Headache Z68.41 Body mass index (BMI) 40.0-44.9, adult Office Visit 03/09/2019 1:20p Main Office Berta Castro M65.331 Trigger finger, P.A. right middle finger M65.311 Trigger thumb, right thumb B35.4 Tinea corporis Office Visit 02/06/2019 11:00a Main Office Berta Castro J45.30 Mild persistent P.A. asthma, uncomplicated E66.01 Morbid (severe) obesity due to excess calories I10 Essential (primary) hypertension M25.562 Pain in left knee K86.2 Cyst of pancreas Office Visit 01/13/2019 1:40p Main Office Berta Castro E66.01 Morbid ( severe) P.A. obesity due to excess calories I10 Essential (primary) hypertension M25.562 Pain in left knee J45.30 Mild persistent asthma, uncomplicated M19.049 Primary osteoarthritis, unspecified hand Assessments Date Code Description Provider 05/12/2019 N89.8 Other specified noninflammatory disorders of Berta Castro , P.A. vagina 05/12/2019 Z12.4 Encounter for screening for malignant neoplasm Berta Castro, P.A. of cervix 05/12/2019 E66.9 Obesity, unspecified Berta Durant, P.A. 05/01/2019 I47.2 Ventricular tachycardia Berta Durant, P.A. 05/01/2019 J45.30 Mild persistent asthma, uncomplicated Berta Durant, P.A. 05/01/2019 E66.01 Morbid (severe) obesity due to excess calories Berta Durant, P.A. 05/01/2019 I10 Essential (primary) hypertension Berta Durant, P.A. 05/01/2019 M19.049 Primary osteoarthritis, unspecified hand Berta Durant, P.A. 05/01/2019 F41.9 Anxiety disorder, unspecified Berta Durant, P.A. 05/01/2019 R51 Headache Berta Durant, P.A. 05/01/2019 Z68.41 Body mass index (BMI) 40.0-44.9, adult Berta Durant, P.A. 03/09/2019 M65.331 Trigger finger, right middle finger Berta Durant, P.A. 03/09/2019 M65.311 Trigger thumb, right thumb Berta Durant, P.A. 03/09/2019 B35.4 Tinea corporis Berta Durant, P.A. 02/06/2019 J45.30 Mild persistent asthma, uncomplicated Berta Durant, P.A. 02/06/2019 E66.01 Morbid (severe) obesity due to excess calories Berta Durant, P.A. 02/06/2019 I10 Essential (primary) hypertension Berta Durant, P.A. 02/06/2019 M25.562 Pain in left knee Berta Durant, P.A. 02/06/2019 K86.2 Cyst of pancreas Berta Durant, P.A. 01/13/2019 E66.01 Morbid (severe) obesity due to excess calories Berta Durant, P.A. 01/13/2019 I10 Essential (primary) hypertension Berta Durant, P.A. 01/13/2019 M25.562 Pain in left knee Berta Durant, P.A. 01/13/2019 J45.30 Mild persistent asthma, uncomplicated Berta Durant, P.A. 01/13/2019 M19.049 Primary osteoarthritis, unspecified hand Berta Durant, P.A. Plan of Treatment 05/01/2019 - Crissy GreyI47.2 Ventricular aqfyzvhddrkA25.30 Mild persistent asthma, uncomplicatedComments:lung clear gcebwJ46.01 Morbid (severe) obesity due to excess hjbkyapjO52 Essential (primary) hypertensionComments:pt advised to report cp, change in angina , sob etContinue same meds with no change. Comply with diet and exercise. Lose weight and watch salt in diet.M19.049 Primary osteoarthritis, unspecified handComments:for knees pt will cont to follow up with Dr. RushF41.9 Anxiety disorder, hyzxkkvmieaP68 HeadacheFollow up:I think this is from taking diclofenac 2 times a day. Now that you do not have much knee pain, you can lower this medication to 1 in the morning and then eventually reduce it to every other day for a week or so and then just take when you need it THese headaches are likely called "rebound headaches"and are caused by this type of medicine, and come on if you have not had the medicine.Z68.41 Body mass index (BMI) 40.0-44.9, adult Functional Status Description No Information Available Mental Status Description No Information Available Referrals Refer to Reason for Referral Status Appt Date [facility] Pain in thumb and 3rd finger, yanetley Closed trigger finger pt will need to call them to schedule appt so as can coordinate it with her porter sample case [facility] [address] [place] [id number] [phone] [facility] Left knee pain: refers Dr. Moraes Pt Closed states that what is wrong with her one knee is now wrong with her other knee. She would like to get a shot in that knee, as well. She has been going to PT, and has ibu and tyl to take if she wants. She states she could also call Dr Moraes and try to get in earlier. [facility] [address] [place] [id number] [phone] [facility] Hearing impairment worsening, please do Closed hearing test. Consult and Testing Hearing Evaluations [address] [facility] [place] Brennan [id number] [phone]
[2019-06-25 18:33] LABS: INR 1.03 (0.82-1.09)
[2019-06-25 18:51] LABS: Albumin 4.1 g/dL (3.2-5.2); Albumin/Globulin Ratio 1.4 (1-3); BUN/Creatinine Ratio 19.3 (8-20); Calcium 9.5 mg/dL (8.6-10.3); EGFR African American 82.7 (>60); EGFR Non-African American 68.4 (>60); Globulin 2.9 g/dL (2-4); Total Bilirubin 0.6 mg/dL (0.2-1.0)
--- NOTE | 2019-06-25 19:47 | ED ---
Progress - Progress Note Progress Note: Receiving sign-out from Dr. Dunne at shift change [address] Cervical Spine reading. CT Cervical Spine Impression: No cervical spine fracture or other acute traumatic CT pathology. ED Provider has reviewed this report. Plan for discharge was discussed with the patient and she was agreeable with this plan. Re-Evaluation - Re-Evaluation First Eval Re-Evaluation Time: 18:19 Comment: Called radiology to push CT images to [facility]. Course/Dx - Course Course Of Treatment: Patient signed out to myself from Dr. Dunne. 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 The neurosurgeon at [facility] to look at the CT scan and does not think this represents an intracranial hemorrhage. Patient was pending CT scan of her cervical spine which came back as negative for any acute process. Patient was discharged. - Diagnoses Provider Diagnoses: Closed head injury - Provider Notifications Time Discussed With Above Provider: 18:27 Instructed by Provider To: Other - Discussed with Dr. Vega, neurosurgeon from Health system, reports he doesn't think brain CT is consistent with hemorrhage so no acute surgical intervention needed at this time. Discharge ED - Sign-Out/Discharge Documenting (check all that apply): Patient Departure - Discharge - Discharge Plan Condition: Stable Disposition: HOME Patient Education Materials: Head Injury (ED) Referrals: Yenny Rain MD [Primary Care Provider] - Additional Instructions: Come back with slurred speech, one-sided weakness, repeated vomiting, or any other concerning symptoms. - Billing Disposition and Condition Condition: STABLE Disposition: Home - Attestation Statements Document Initiated by Betito: Yes Documenting Camilleibe: Willi Doty Provider For Whom Betito is Documenting (Include Credential): Paul Pierson MD Scribe Attestation: July, Willi Doty, scribed for Paul Pierson MD on 06/25/19 at 2100. Scribe Documentation Reviewed: Yes Provider Attestation: The documentation as recorded by the Willi ireland accurately reflects the service I personally performed and the decisions made by me, Paul Pierson MD Status of Scribe Document: Viewed
[2019-06-25 20:04] VITALS: BP 157/86
== END 2019-06-25 19:55 | disposition home or self-care (01) ==
LOC: ED 17:37
DX: S09.90XA Unspecified injury of head, initial encounter (principal); W22.09XA Striking against other stationary object, initial encounter; Y92.002 Bathroom of unspecified non-institutional (private) residence as the place of occurrence of the external cause; E78.00 Pure hypercholesterolemia, unspecified; I10 Essential (primary) hypertension; J44.9 Chronic obstructive pulmonary disease, unspecified; F32.9 Major depressive disorder, single episode, unspecified; Z87.891 Personal history of nicotine dependence; Z90.49 Acquired absence of other specified parts of digestive tract; Z98.51 Tubal ligation status; Z88.0 Allergy status to penicillin; Z88.2 Allergy status to sulfonamides; Z88.8 Allergy status to other drugs, medicaments and biological substances; Z88.1 Allergy status to other antibiotic agents; Z91.041 Radiographic dye allergy status; R94.02 Abnormal brain scan; R51 Headache
CPT/HCPCS: 36415; 72125; 80053; 85025; 85610; 99283